=== PATIENT | female | born 1940 | race African-American/Black ===

== ENCOUNTER → 2016-11-05 | Outpatient (CLI) | payer MEDICARE, MEDICAID ==
[~2016-11-05] VITALS: Ht 167.6 cm; Wt 59.0 kg
[~2016-11-05] MED LIST: ASPI1TAB PO; ATEN100T PO; CINA30TA PO; HYDR200T3 PO; LEVO25TA5 PO; LIDOCAINE 2% INJ 100 MG/5 ML SDV (FOR ANES.) As Ordered ONE; LISI10TA4 PO; NS 1,000 ML IV SCH; PRIL20CA9 PO; PROPOFOL 200 MG/20 ML VIAL As Ordered ONE; ROCA0.25 PO; SERT50TA PO; ZOCO10TA PO
--- NOTE | 2016-11-05 12:02 | ROOR ---
Patient Name: Marina Donahue Procedure Date: 11/05/2016 11:50 AM Date of : 1940 Age: 76 Room: [facility] Gender: Female Note Status: Finalized Procedure: Upper GI endoscopy Indications: Epigastric abdominal pain, Weight loss Providers: David CANTU MD Referring MD: JUAN CARLOS ANDERSON NP Requesting Provider: Medicines: Monitored Anesthesia Care Complications: No immediate complications. Procedure: Pre-Anesthesia Assessment: - The heart rate, respiratory rate, oxygen saturations, blood pressure, adequacy of pulmonary ventilation, and response to care were monitored throughout the procedure. The Endoscope was introduced through the mouth, and advanced to the second part of duodenum. The upper GI endoscopy was accomplished without difficulty. The patient tolerated the procedure well. Findings: The examined esophagus was normal. Scattered mild inflammation characterized by erosions was found in the gastric antrum. Biopsies were taken with a cold forceps for Helicobacter pylori testing. The exam of the stomach was otherwise normal. The examined duodenum was normal. Impression: - Normal esophagus. - Mild antral gastritis, a few superficial erosions seen. Biopsied. - Normal examined duodenum. Recommendation: - Use Prilosec (omeprazole) 20 mg PO BID. - Telephone endoscopist for pathology results in 2 weeks. David Cantu MD David CANTU MD 11/05/2016 12:02:19 PM This report has been signed electronically. Number of Addenda: 0 Note Initiated On: 11/05/2016 11:50 AM Estimated Blood Loss: Estimated blood loss: none.
--- NOTE | 2016-11-05 12:28 | ROOR ---
Patient Name: Marina Donahue Procedure Date: 11/05/2016 11:51 AM Date of : 1940 Age: 76 Room: [facility] Gender: Female Note Status: Finalized Procedure: Colonoscopy Indications: Weight loss Providers: David CANTU MD Referring MD: JUAN CARLOS ANDERSON NP Requesting Provider: Medicines: Monitored Anesthesia Care Complications: No immediate complications. Procedure: Pre-Anesthesia Assessment: - The heart rate, respiratory rate, oxygen saturations, blood pressure, adequacy of pulmonary ventilation, and response to care were monitored throughout the procedure. The Colonoscope was introduced through the anus and advanced to the cecum, identified by appendiceal orifice and ileocecal valve. The colonoscopy was somewhat difficult due to a tortuous colon. The patient tolerated the procedure well. The quality of the bowel preparation was good. Findings: The perianal and digital rectal examinations were normal. (Exam: Complete, Prep: Good or Excellent.) The sigmoid colon was significantly tortuous. Advancing the scope required changing the patient's position. Multiple diverticula were found in the sigmoid colon. There was narrowing of the colon in association with the diverticular opening. The exam was otherwise without abnormality. Impression: - Spastic,angulated and tortuous sigmoid colon with scattered diverticulosis. - The examination was otherwise normal. - No specimens collected. Recommendation: - Continue present medications. David Cantu MD David CANTU MD 11/05/2016 12:27:54 PM This report has been signed electronically. Number of Addenda: 0 Note Initiated On: 11/05/2016 11:51 AM Estimated Blood Loss: Estimated blood loss: none.
[2016-11-05 12:45] VITALS: BP 143/81
== END ==
LOC: M OPP 09:37
PROVIDERS: ATTEND Internal Medicine Gastroenterology
DX: R63.4 Abnormal weight loss (principal); Q43.8 Other specified congenital malformations of intestine; R10.13 Epigastric pain; K29.70 Gastritis, unspecified, without bleeding; E03.9 Hypothyroidism, unspecified; I10 Essential (primary) hypertension; M32.9 Systemic lupus erythematosus, unspecified; E78.00 Pure hypercholesterolemia, unspecified; K21.9 Gastro-esophageal reflux disease without esophagitis; F41.9 Anxiety disorder, unspecified; F32.9 Major depressive disorder, single episode, unspecified; J30.2 Other seasonal allergic rhinitis; Z79.82 Long term (current) use of aspirin; Z79.899 Other long term (current) drug therapy

== ENCOUNTER → 2017-02-28 | Outpatient (REF) | payer MEDICARE, MEDICAID ==
[~2017-02-28] MED LIST changes: -LIDOCAINE 2% INJ 100 MG/5 ML SDV (FOR ANES.) As Ordered ONE; -NS 1,000 ML IV SCH; -PROPOFOL 200 MG/20 ML VIAL As Ordered ONE
[2017-02-28 15:24] LABS: FREE T4 1.14 NG/DL (0.76-1.46)
== END ==
LOC: M LAB REF 13:58
PROVIDERS: ATTEND Internal Medicine Nephrology
DX: E03.9 Hypothyroidism, unspecified (principal)

== ENCOUNTER → 2017-04-13 | Outpatient (CLI) | payer MEDICARE, MEDICAID ==
--- NOTE | 2017-04-16 06:44 | ECHO ---
DATE OF PROCEDURE: 04/13/2017 REFERRING PHYSICIAN: Orquidea Thornton, physicians warehouse assistant. INDICATION: Non-rheumatic aortic regurgitation, non-rheumatic mitral regurgitation. HEIGHT: 168 cm. WEIGHT: 56 kg. MEASUREMENTS: Left atrium: 3.6 cm Aortic root: 2.8 CM Ventricular septum: 1.29 cm Posterior wall: 1.31 cm Left ventricle diastole: 4.1 cm LVOT: 2.1 cm Inferior vena cava: 1.6 cm DOPPLER MEASUREMENTS: Very mild aortic valve regurgitation. No aortic stenosis. Aortic valve velocity 91.0 cm/s. Mitral A velocity: 63.9 cm/s Moderate mitral regurgitation. Mitral E velocity: 79.4 cm/s Mitral A velocity: 35.2 cm/s Mitral deceleration time: 95 ms. Mild tricuspid regurgitation. Estimated right ventricular systolic pressure 56 mmHg assuming an atrial pressure of 5 mmHg. Trace pulmonic regurgitation. MITRAL ANNULAR TISSUE DOPPLER: E-prime septal: 3.5 cm/s E-prime lateral: 7.8 cm/s DESCRIPTION: Rhythm was sinus. Image quality was good. This was a 2D, M-mode, color flow Doppler and pulsed wave Doppler examination and included mitral annular tissue Doppler. CONCLUSIONS: 1. Mild concentric left ventricular hypertrophy. Very mild global LV hypokinesis of the left ventricle. Mild reduction in overall LV systolic function. LVEF 55% by visual estimate. 2. Suggestive of possible grade 3 or grade 4 LV diastolic dysfunction (restrictive filling pattern); however caution with interpretation in the setting of moderate mitral regurgitation. 3. Focal mitral valve prolapse. No flail segments. Moderate mitral regurgitation. 4. Very mild aortic valve sclerosis of a 3-cusp aortic valve. Very mild aortic regurgitation. 5. Moderate elevation of estimated right ventricle systolic pressure (56 mmHg). 6. Tiny pericardial effusion.
== END ==
LOC: M CARPUL 08:08
PROVIDERS: ATTEND Nurse Practitioner Family
DX: I34.0 Nonrheumatic mitral (valve) insufficiency (principal); I35.1 Nonrheumatic aortic (valve) insufficiency

== ENCOUNTER 2017-07-02 09:07 | Emergency (ER) | payer MEDICARE, MEDICAID ==
[2017-07-02] MEDS ORDERED: ACETAMINOPHEN TAB 650MG DOSE (2X325MG) PO ONE (09:30)
--- NOTE | 2017-07-02 10:17 | REP ---
LEFT WRIST, FOUR VIEWS: HISTORY: Pain . There is no acute fracture or dislocation. There is narrowing of the 1st carpometacarpal joint space. IMPRESSION: There is no acute fracture or dislocation. Signed by Ottoniel Whyte MD 07/02/2017 10:30 A
--- NOTE | 2017-07-02 10:26 | REP ---
LEFT HAND, FOUR VIEWS: HISTORY: Pain. There is no acute fracture or dislocation. There is narrowing of the 1st carpometacarpal joint space. IMPRESSION: There is no acute fracture or dislocation. Signed by Ottoniel Whyte MD 07/02/2017 10:30 A
[2017-07-02] MEDS ORDERED: MEDR4PAK PO (10:55)
[2017-07-02 11:07] VITALS: BP 156/93
== END 2017-07-02 11:12 | disposition home or self-care (01) ==
LOC: M ED 09:07
DX: S66.912A Strain of unspecified muscle, fascia and tendon at wrist and hand level, left hand, initial encounter (principal); X58.XXXA Exposure to other specified factors, initial encounter; Y92.89 Other specified places as the place of occurrence of the external cause; Y93.89 Activity, other specified; Y99.8 Other external cause status; I10 Essential (primary) hypertension; Z79.899 Other long term (current) drug therapy; Z79.82 Long term (current) use of aspirin; Z87.39 Personal history of other diseases of the musculoskeletal system and connective tissue; Z87.891 Personal history of nicotine dependence; Z98.890 Other specified postprocedural states

== ENCOUNTER 2017-08-21 13:35 | Emergency (ER) | payer MEDICARE, MEDICAID ==
[2017-08-21] MEDS: diphenhydrAMINE INJ 50MG/ML VIAL (J1200) IV (13:45)
[2017-08-21] MEDS: FAMOTIDINE IV BAG 20 MG in APPROPRIATE DILUENT 1 EA IV (13:45)
[2017-08-21] MEDS: methylPREDNISolone INJ 125 MG/2 ML VIAL (J2930) IV (13:45)
== END 2017-08-21 15:16 | disposition home or self-care (01) ==
LOC: M ED 13:35
DX: T78.40XA Allergy, unspecified, initial encounter (principal); R22.0 Localized swelling, mass and lump, head; F41.9 Anxiety disorder, unspecified; F33.9 Major depressive disorder, recurrent, unspecified; Z79.82 Long term (current) use of aspirin; Z79.899 Other long term (current) drug therapy; Z91.048 Other nonmedicinal substance allergy status; Z98.890 Other specified postprocedural states
CPT/HCPCS: J1200

== ENCOUNTER → 2017-08-25 | Outpatient (REF) | payer MEDICARE, MEDICAID ==
[2017-08-25 14:12] LABS: FERRITIN 299 NG/ML (8-252); IRON (FE) 76 UG/DL (50-170); PERCENT SATURATION 26.3 % (13.2-45.0); TOTAL IRON BINDING CAPACITY 289 UG/DL (250-450)
== END ==
LOC: M LAB REF 13:22
DX: N18.3 Chronic kidney disease, stage 3 (moderate) (principal); D64.9 Anemia, unspecified
CPT/HCPCS: 83550

== ENCOUNTER → 2017-09-14 | Outpatient (CLI) | payer MEDICARE, MEDICAID | LOC: M RAD 09:18 | DX: N18.3 Chronic kidney disease, stage 3 (moderate) (principal); N28.1 Cyst of kidney, acquired | CPT/HCPCS: 76775 ==

== ENCOUNTER 2017-09-18 09:27 | Emergency (ER) | payer MEDICARE, MEDICAID ==
[2017-09-18] MEDS: ONDANSETRON 4MG/2ML VIAL (J2405) IV (10:55)
[2017-09-18] MEDS: NS 500 ML IV (10:55)
[2017-09-18 11:02] LABS: BASO % 0.2 % (0.0-1.0); EOS % 0.2 % (0.0-3.0); HEMATOCRIT 34.8 % (36.0-47.0); IMMATURE GRANULOCYTE % 0.5 % (0-0); LYMPH # 1.4 10^3/uL (1.5-4.5); LYMPH % 23.5 % (24.0-44.0); MEAN CORPUSCULAR HEMOGLOBIN 28.9 pg (27.0-33.0); MEAN CORPUSCULAR HGB CONC 31.6 g/dl (32.0-36.5); MEAN CORPUSCULAR VOLUME 91.3 fl (80.0-96.0); MONO # 0.6 10^3/uL (0.0-0.8); MONO % 10.4 % (0.0-5.0); NEUTROPHILS # 3.8 10^3/uL (1.8-7.7); NEUTROPHILS % 65.2 % (36.0-66.0); PLATELET COUNT, AUTOMATED 341 10^3/uL (150-450); RED BLOOD COUNT 3.81 10^6/uL (4.00-5.40); RED CELL DISTRIBUTION WIDTH 16.7 % (11.5-14.5); WHITE BLOOD COUNT 5.9 10^3/uL (4.0-10.0)
[2017-09-18 11:08] LABS: ALBUMIN 3.4 GM/DL (3.2-5.2); ALBUMIN/GLOBULIN RATIO 0.85 (1.00-1.93); ALKALINE PHOSPHATASE 88 U/L (45-117); ALT/SGPT 27 U/L (12-78); ANION GAP 10 MEQ/L (8-16); AST/SGOT 37 U/L (7-37); BILIRUBIN,DIRECT 0.3 MG/DL (0.0-0.2); BLOOD UREA NITROGEN 21 MG/DL (7-18); CALCIUM LEVEL 8.1 MG/DL (8.8-10.2); CARBON DIOXIDE LEVEL 27 MEQ/L (21-32); CHLORIDE LEVEL 101 MEQ/L (98-107); CREATININE FOR GFR 1.27 MG/DL (0.55-1.02); GLOMERULAR FILTRATION RATE 52.5 (>39); GLUCOSE, FASTING 125 MG/DL (70-100); POTASSIUM SERUM 3.8 MEQ/L (3.5-5.1); SODIUM LEVEL 138 MEQ/L (136-145); TOTAL PROTEIN 7.4 GM/DL (6.4-8.2)
[2017-09-18] MEDS: ATENOLOL 50 MG TAB PO (12:45)
[2017-09-18] MEDS: LOSARTAN 50 MG TAB PO (12:45)
== END 2017-09-18 14:54 | disposition home or self-care (01) ==
LOC: M ED 09:27
DX: A08.4 Viral intestinal infection, unspecified (principal); I12.9 Hypertensive chronic kidney disease with stage 1 through stage 4 chronic kidney disease, or unspecified chronic kidney disease; N18.3 Chronic kidney disease, stage 3 (moderate); K21.9 Gastro-esophageal reflux disease without esophagitis; F33.9 Major depressive disorder, recurrent, unspecified; Z79.890 Hormone replacement therapy; Z79.82 Long term (current) use of aspirin; Z79.899 Other long term (current) drug therapy; Z91.048 Other nonmedicinal substance allergy status
CPT/HCPCS: J2405

== ENCOUNTER → 2017-10-28 | Outpatient (CLI) | payer MEDICARE, MEDICAID ==
[2017-10-28 10:34] LABS: ALBUMIN 3.2 GM/DL (3.2-5.2); ALKALINE PHOSPHATASE 68 U/L (45-117); ALT/SGPT 24 U/L (12-78); ANION GAP 8 MEQ/L (8-16); AST/SGOT 39 U/L (7-37); BILIRUBIN,TOTAL 0.7 MG/DL (0.2-1.0); BLOOD UREA NITROGEN 8 MG/DL (7-18); CALCIUM LEVEL 7.9 MG/DL (8.8-10.2); CARBON DIOXIDE LEVEL 29 MEQ/L (21-32); CHLORIDE LEVEL 107 MEQ/L (98-107); CHOLESTEROL LEVEL 109 MG/DL (<200); CREATININE FOR GFR 0.86 MG/DL (0.55-1.30); GLOMERULAR FILTRATION RATE > 60.0 (>39); GLUCOSE, FASTING 114 MG/DL (70-100); HDL CHOLESTEROL 48 MG/DL (>40); LDL CHOLESTEROL 44.2 MG/DL (<100); NON-HDL-C 61 MG/DL; POTASSIUM SERUM 3.4 MEQ/L (3.5-5.1); SODIUM LEVEL 144 MEQ/L (136-145); TOTAL PROTEIN 6.4 GM/DL (6.4-8.2); TRIGLYCERIDES LEVEL 84 MG/DL (<150)
[2017-10-28 10:41] LABS: BASO % 0.5 % (0.0-1.0); EOS % 0.5 % (0.0-3.0); HEMATOCRIT 35.6 % (36.0-47.0); HEMOGLOBIN 11.2 g/dl (12.0-16.0); IMMATURE GRANULOCYTE % 0.3 % (0-3.0); LYMPH # 0.9 10^3/uL (1.5-4.5); LYMPH % 25.4 % (24.0-44.0); MEAN CORPUSCULAR HEMOGLOBIN 29.6 pg (27.0-33.0); MEAN CORPUSCULAR HGB CONC 31.5 g/dl (32.0-36.5); MEAN CORPUSCULAR VOLUME 94.2 fl (80.0-96.0); MONO # 0.4 10^3/uL (0.0-0.8); MONO % 11.7 % (0.0-5.0); NEUTROPHILS # 2.3 10^3/uL (1.8-7.7); NEUTROPHILS % 61.6 % (36.0-66.0); PLATELET COUNT, AUTOMATED 150 10^3/uL (150-450); RED BLOOD COUNT 3.78 10^6/uL (4.00-5.40); RED CELL DISTRIBUTION WIDTH 17.8 % (11.5-14.5); WHITE BLOOD COUNT 3.7 10^3/uL (4.0-10.0)
[2017-10-28 10:45] LABS: ESTIMATED AVERAGE GLUCOSE 120 MG/DL (60-110); HEMOGLOBIN A1c 5.8 %
[2017-10-28 11:39] LABS: TOTAL 25(OH) VITAMIN D 26.5 NG/ML (30.0-100.0)
== END ==
LOC: M CARPUL 08:43
DX: Z13.29 Encounter for screening for other suspected endocrine disorder (principal); R07.9 Chest pain, unspecified; R06.09 Other forms of dyspnea
CPT/HCPCS: 93306

== ENCOUNTER 2017-11-13 15:20 | Emergency (ER) | payer MEDICARE, MEDICAID ==
[2017-11-13] MEDS: ACETAMINOPH W/CODEINE #3 TAB UD PO (15:58)
== END 2017-11-13 17:16 | disposition home or self-care (01) ==
LOC: M ED 15:20
DX: S63.521A Sprain of radiocarpal joint of right wrist, initial encounter (principal); X50.0XXA Overexertion from strenuous movement or load, initial encounter; Y92.098 Other place in other non-institutional residence as the place of occurrence of the external cause; I10 Essential (primary) hypertension; E07.9 Disorder of thyroid, unspecified; J30.2 Other seasonal allergic rhinitis; Z79.899 Other long term (current) drug therapy; Z79.82 Long term (current) use of aspirin
CPT/HCPCS: 73110

== ENCOUNTER → 2017-11-16 | Outpatient (REF) | payer MEDICARE, MEDICAID ==
[2017-11-16 12:09] LABS: BASO % 0.4 % (0.0-1.0); HEMATOCRIT 39.1 % (36.0-47.0); HEMOGLOBIN 12.5 g/dl (12.0-16.0); IMMATURE GRANULOCYTE % 0.2 % (0-3.0); LYMPH # 0.9 10^3/uL (1.5-4.5); LYMPH % 18.1 % (24.0-44.0); MEAN CORPUSCULAR HEMOGLOBIN 29.9 pg (27.0-33.0); MEAN CORPUSCULAR VOLUME 93.5 fl (80.0-96.0); MONO # 0.5 10^3/uL (0.0-0.8); MONO % 8.9 % (0.0-5.0); NEUTROPHILS # 3.6 10^3/uL (1.8-7.7); NEUTROPHILS % 72.4 % (36.0-66.0); PLATELET COUNT, AUTOMATED 188 10^3/uL (150-450); RED BLOOD COUNT 4.18 10^6/uL (4.00-5.40); RED CELL DISTRIBUTION WIDTH 14.7 % (11.5-14.5)
[2017-11-16 12:47] LABS: ERYTHROCYTE SEDIMENTATION RATE 47 mm/hr (0-30)
[2017-11-16 13:04] LABS: C REACTIVE PROTEIN QUANTITATIV 3.87 MG/DL (0.00-0.30); RHEUMATOID FACTOR QUANT < 10.0 IU/ML (<15.0)
[2017-11-16 13:04] LABS: URIC ACID 4.4 MG/DL (2.6-6.0)
[2017-11-18 00:07] LABS: ANTI DOUBLE STRAND-DNA AB <1 IU/mL (0-9); ANTINUCLEAR ANTIBODIES DIRECT Positive (Negative); Lyme Disease IgG/IgM Antibodie <0.91 ISR (0.00-0.90); Lyme Disease IgM Ab Quantitati <0.80 index (0.00-0.79); RNP ANTIBODIES 6.8 AI (0.0-0.9); SJOGREN'S ANTI SS-A 0.7 AI (0.0-0.9); SJOGREN'S ANTI SS-B <0.2 AI (0.0-0.9); SMITH ANTIBODIES <0.2 AI (0.0-0.9)
== END ==
LOC: M LABDRAW1 11:05
DX: M25.531 Pain in right wrist (principal)
CPT/HCPCS: 84550

== ENCOUNTER → 2018-01-05 | Outpatient (REF) | payer MEDICARE, MEDICAID ==
[2018-01-05 13:15] LABS: RHEUMATOID FACTOR QUANT < 10.0 IU/ML (<15.0)
[2018-01-06 14:16] LABS: ANTI DOUBLE STRAND-DNA AB <1 IU/mL (0-9); ANTINUCLEAR ANTIBODIES DIRECT Positive (Negative); RNP ANTIBODIES 6.8 AI (0.0-0.9); SJOGREN'S ANTI SS-A 0.7 AI (0.0-0.9); SJOGREN'S ANTI SS-B <0.2 AI (0.0-0.9); SMITH ANTIBODIES <0.2 AI (0.0-0.9)
== END ==
LOC: M LABDRAW1 11:54
DX: M25.431 Effusion, right wrist (principal); R76.8 Other specified abnormal immunological findings in serum
CPT/HCPCS: 36415

== ENCOUNTER → 2018-08-01 | Outpatient (CLI) | payer MEDICARE, MEDICAID | LOC: M SLEEP HO 11:40 | DX: G47.30 Sleep apnea, unspecified (principal) | CPT/HCPCS: G0399 ==

== ENCOUNTER → 2018-09-18 | Outpatient (REF) | payer MEDICARE, MEDICAID ==
[~2018-09-18] MED LIST changes: +ADVI200T PO; +AMLO5TAB6 PO; +BENA25CA4 PO; +CODE30TA3 PO; +LOSA100T50; +MEDR4PAK PO; +PEPC1TAB5 PO; +PRED20TA PO; +ZOFR4TAB14 PO
[2018-09-18 19:47] LABS: BASO % 0.2 % (0.0-1.0); EOS % 0.2 % (0.0-3.0); HEMATOCRIT 35.3 % (36.0-47.0); HEMOGLOBIN 11.3 g/dl (12.0-15.5); LYMPH # 0.5 10^3/uL (1.5-4.5); LYMPH % 10.8 % (24.0-44.0); MEAN CORPUSCULAR HEMOGLOBIN 28.9 pg (27.0-33.0); MEAN CORPUSCULAR VOLUME 90.3 fl (80.0-96.0); MONO # 0.4 10^3/uL (0.0-0.8); NEUTROPHILS % 80.6 % (36.0-66.0); PLATELET COUNT, AUTOMATED 203 10^3/uL (150-450); RED BLOOD COUNT 3.91 10^6/uL (4.00-5.40)
[2018-09-18 20:04] LABS: ALBUMIN 3.8 GM/DL (3.2-5.2); ALT/SGPT 19 U/L (12-78); BILIRUBIN,TOTAL 0.5 MG/DL (0.2-1.0); BLOOD UREA NITROGEN 22 MG/DL (7-18); CALCIUM LEVEL 8.5 MG/DL (8.8-10.2); CARBON DIOXIDE LEVEL 27 MEQ/L (21-32); CHLORIDE LEVEL 104 MEQ/L (98-107); CHOLESTEROL LEVEL 149 MG/DL (<200); CHOLESTEROL RISK RATIO 2.223 (<5); CREATININE FOR GFR 1.07 MG/DL (0.55-1.30); FOLATE 14.9 NG/ML; GLOMERULAR FILTRATION RATE > 60.0 (>39); GLUCOSE, FASTING 82 MG/DL (70-100); HDL CHOLESTEROL 67 MG/DL (>40); LDL CHOLESTEROL 62 MG/DL (<100); NON-HDL-C 82 MG/DL; POTASSIUM SERUM 3.8 MEQ/L (3.5-5.1); SODIUM LEVEL 141 MEQ/L (136-145); TOTAL PROTEIN 7.6 GM/DL (6.4-8.2); TRIGLYCERIDES LEVEL 98 MG/DL (<150)
[2018-09-18 20:09] LABS: HEMOGLOBIN A1c 6.9 %
[2018-09-20 08:54] LABS: VITAMIN B12 LEVEL 248 PG/ML (232-1245)
== END ==
LOC: M LAB REF 18:54
PROVIDERS: ATTEND Nurse Practitioner Family
DX: I10 Essential (primary) hypertension (principal); E78.5 Hyperlipidemia, unspecified

== ENCOUNTER → 2018-10-17 | Outpatient (REF) | payer MEDICARE, MEDICAID ==
[~2018-10-17] MED LIST changes: +CLAR1TAB2 PO; +DILT120C31; +EQ O20TA4; +HYDR1CRE TOP; +LORA1SOL PO; +SIMV10TA2
[2018-10-17 14:06] LABS: APPEARANCE, URINE CLEAR (CLEAR); BACTERIA, URINE AUTO NEGATIVE (NEGATIVE); BILIRUBIN, URINE AUTO NEGATIVE (NEGATIVE); BLOOD, URINE BLOOD NEGATIVE (NEGATIVE); COLOR, URINE YELLOW (YELLOW); GLUCOSE, URINE (UA) AUTO NEGATIVE (NEGATIVE); KETONE, URINE AUTO NEGATIVE (NEGATIVE); LEUKOCYTE ESTERASE, URINE AUTO TRACE (NEGATIVE); NITRITE, URINE AUTO NEGATIVE (NEGATIVE); PROTEIN, URINE AUTO NEGATIVE (NEGATIVE); RBC, URINE AUTO 2 /HPF (0-3); SPECIFIC GRAVITY URINE AUTO 1.018 (1.002-1.035); SQUAMOUS EPITHELIAL CELL UR AU 1 /HPF (0-6); UROBILINOGEN, URINE AUTO 0.2 mg/dL (0.0-2.0); WBC, URINE AUTO 6 /HPF (0-3)
[2018-10-17 14:23] LABS: TOTAL PROTEIN,RANDOM URINE 23.5 MG/DL (0.0-12.0)
[2018-10-17 14:25] LABS: C REACTIVE PROTEIN QUANTITATIV 0.67 MG/DL (0.00-0.30); COMPLEMENT C3 116 MG/DL (90-180); COMPLEMENT C4 26 MG/DL (10-40); RHEUMATOID FACTOR QUANT 51.2 IU/ML (<15.0); TOTAL PROTEIN 7.6 GM/DL (6.4-8.2)
[2018-10-18 09:08] LABS: HEPATITIS B SURFACE ANTIBODY POSITIVE (POSITIVE)
[2018-10-18 09:14] LABS: HEPATITIS B SURFACE ANTIGEN NEGATIVE (NEGATIVE)
[2018-10-18 09:42] LABS: HEPATITIS C VIRUS ABY INDEX 0.1 INDEX (<0.8)
[2018-10-19 14:35] LABS: ALBUMIN 3.82 GM/DL (3.29-5.55); ALBUMIN % 50.3 % (55.8-66.1); ALPHA-1-GLOBULIN % 5.1 % (2.9-4.9); ALPHA-1-GLOBULINS 0.39 GM/DL (0.17-0.41); ALPHA-2-GLOBULINS 0.86 GM/DL (0.42-0.99); ALPHA-2-GLOBULINS % 11.3 % (7.1-11.8); BETA-1-GLOBULINS 0.44 GM/DL (0.28-0.60); BETA-1-GLOBULINS % 5.8 % (4.7-7.2); BETA-2-GLOBULINS 0.46 GM/DL (0.19-0.55); BETA-2-GLOBULINS % 6.1 % (3.2-6.5); GAMMA GLOBULIN % 21.4 % (11.1-18.8); GAMMA GLOBULINS 1.63 GM/DL (0.65-1.58)
[2018-10-23 14:10] LABS: ANTI CENTROMERE ANTIBODY <0.2 AI (0.0-0.9); ANTI DOUBLE STRAND-DNA AB 1 IU/mL (0-9); ANTI SCLERODERMA ANTIBODIES <0.2 AI (0.0-0.9); CYCLIC CITRULLINATED PEPTIDE 38 units (0-19); HEPATITIS B CORE ANTIBODY IGG Positive (Negative)
== END ==
LOC: M SFHCPLAZ 11:06
PROVIDERS: ATTEND Internal Medicine Rheumatology
DX: M32.9 Systemic lupus erythematosus, unspecified (principal); M35.1 Other overlap syndromes; R63.4 Abnormal weight loss
CPT/HCPCS: 36415; 81001; 82570; 83520; 84156; 84165; 85652; 86140; 86160; 86200; 86225; 86235; 86255; 86335; 86431; 86480; 86704; 86706; 86803; 87340; G0463

== ENCOUNTER 2018-11-02 10:44 | Emergency (ER) | payer MEDICARE, MEDICAID ==
[~2018-11-02] VITALS: Ht 167.6 cm; Wt 53.6 kg
[~2018-11-02 10:44] MED LIST changes: -CLAR1TAB2 PO; -DILT120C31; -EQ O20TA4; -HYDR1CRE TOP; -LORA1SOL PO; -SIMV10TA2
[2018-11-02 10:45] VITALS: BP 173/82
[2018-11-02] MEDS ORDERED: SIMV10TA2 (10:55)
[2018-11-02] MEDS ORDERED: DILT120C31 (10:55)
[2018-11-02] MEDS ORDERED: EQ O20TA4 (10:55)
[2018-11-02] MEDS ORDERED: LORA1SOL PO (10:55)
[2018-11-02] MEDS ORDERED: HYDR1CRE TOP (11:29)
[2018-11-02] MEDS ORDERED: CLAR1TAB2 PO (11:29)
[2018-11-02] MEDS ORDERED: LORATADINE 10 MG TAB PO ONE (11:30)
[2018-11-02] MEDS ORDERED: HYDROCORTISONE 1% CREAM 30 GM TOP ONE (11:30)
[2018-11-02] MEDS ORDERED: PRED20TA PO (11:34)
== END 2018-11-02 11:39 | disposition home or self-care (01) ==
LOC: M ED 10:44
DX: R21 Rash and other nonspecific skin eruption (principal); T88.7XXA Unspecified adverse effect of drug or medicament, initial encounter; T50.901A Poisoning by unspecified drugs, medicaments and biological substances, accidental (unintentional), initial encounter; Z79.82 Long term (current) use of aspirin; Z79.899 Other long term (current) drug therapy

== ENCOUNTER → 2018-11-06 | Outpatient (REF) | payer MEDICARE, MEDICAID ==
[~2018-11-06] MED LIST changes: +CLAR1TAB2 PO; +DILT120C31; +EQ O20TA4; +HYDR1CRE TOP; +LORA1SOL PO; +SIMV10TA2
== END ==
LOC: M SFHCPLAZ 12:18
PROVIDERS: ATTEND Internal Medicine Rheumatology
DX: R63.4 Abnormal weight loss (principal); Z53.8 Procedure and treatment not carried out for other reasons

== ENCOUNTER → 2018-12-18 | Outpatient (REF) | payer MEDICARE, MEDICAID ==
[~2018-12-18] MED LIST changes: +ACET300T47 PO; -ASPI1TAB PO; +ASPI81TA26 PO; -CINA30TA PO; +CINA30TA4 PO; -CODE30TA3 PO; -LORA1SOL PO; +LORA5SOL12 PO; +SERT-141 PO; -SERT50TA PO
[2018-12-18 20:35] LABS: HEMOGLOBIN A1c 6.6 %
== END ==
LOC: M LAB REF 16:33
PROVIDERS: ATTEND Nurse Practitioner Family
DX: Z13.9 Encounter for screening, unspecified (principal); R73.01 Impaired fasting glucose

== ENCOUNTER → 2019-01-02 | Outpatient (REF) | payer MEDICARE, MEDICAID | LOC: M LABDRAW1 16:42 | PROVIDERS: ATTEND Internal Medicine Pulmonary Disease | DX: J30.9 Allergic rhinitis, unspecified (principal) ==

== ENCOUNTER → 2019-06-18 | Outpatient (REF) | payer MEDICARE, MEDICAID ==
[2019-06-18 17:47] LABS: ALBUMIN 3.6 GM/DL (3.2-5.2); BILIRUBIN,TOTAL 0.6 MG/DL (0.2-1.0); CALCIUM LEVEL 9.2 MG/DL (8.8-10.2); CHOLESTEROL RISK RATIO 1.685 (<5); CREATININE FOR GFR 1.68 MG/DL (0.55-1.30); GLOMERULAR FILTRATION RATE 37.8 (>32); TOTAL PROTEIN 7.7 GM/DL (6.4-8.2)
[2019-06-18 17:48] LABS: BASO % 0.3 % (0.0-1.0); EOS % 0.3 % (0.0-3.0); HEMATOCRIT 37.6 % (36.0-47.0); HEMOGLOBIN 11.9 g/dl (12.0-15.5); LYMPH % 29.1 % (24.0-44.0); MEAN CORPUSCULAR HGB CONC 31.6 g/dl (32.0-36.5); MEAN CORPUSCULAR VOLUME 94.7 fl (80.0-96.0); MONO # 0.4 10^3/uL (0.0-0.8); NEUTROPHILS # 2.1 10^3/uL (1.5-8.5); PLATELET COUNT, AUTOMATED 182 10^3/uL (150-450); RED BLOOD COUNT 3.97 10^6/uL (4.00-5.40); WHITE BLOOD COUNT 3.6 10^3/uL (4.0-10.0)
[2019-06-18 19:10] LABS: HEMOGLOBIN A1c 6.2 %
== END ==
LOC: M LAB REF 16:27
PROVIDERS: ATTEND Nurse Practitioner Family
DX: I10 Essential (primary) hypertension (principal); E78.5 Hyperlipidemia, unspecified; E11.9 Type 2 diabetes mellitus without complications

== ENCOUNTER → 2019-07-09 | Day surgery (SDC) | payer MEDICARE, MEDICAID ==
[~2019-07-09] VITALS: Ht 167.6 cm; Wt 51.6 kg
[~2019-07-09] MED LIST changes: +CLAR10CA3 PO; -DILT120C31; +DILT120C31 PO; +ELIQ2.5T PO; +K-TA10TA2 PO; +LIDOCAINE 1% MDV 20ML VIAL SQ PRN; +LIDOCAINE 2% INJ 100 MG/5 ML SDV (FOR ANES.) As Ordered ONE; +LOSA25TA14 PO; +LR 1,000 ML IV SCH; +MIDAZOLAM INJ 2 MG/2 ML VIAL (J2250) As Ordered ONE; +OMEP10CASR PO; +PROPOFOL 200 MG/20 ML VIAL As Ordered ONE
[2019-07-09 07:37] VITALS: BP 137/85
--- NOTE | 2019-07-10 21:24 | ECGEPIP ---
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
== END | disposition home or self-care (01) ==
LOC: M SDC 06:00
PROVIDERS: ATTEND Internal Medicine Cardiovascular Disease
DX: I48.91 Unspecified atrial fibrillation (principal); Z53.09 Procedure and treatment not carried out because of other contraindication

== ENCOUNTER 2019-07-11 06:08 | Day surgery (SDC) | payer MEDICARE, MEDICAID ==
[~2019-07-11] VITALS: Ht 167.6 cm; Wt 51.3 kg
[~2019-07-11 06:08] MED LIST changes: -LIDOCAINE 2% INJ 100 MG/5 ML SDV (FOR ANES.) As Ordered ONE; -LR 1,000 ML IV SCH; -MIDAZOLAM INJ 2 MG/2 ML VIAL (J2250) As Ordered ONE; -PROPOFOL 200 MG/20 ML VIAL As Ordered ONE
[2019-07-11] MEDS ORDERED: LR 1,000 ML IV ONE (06:45)
[2019-07-11] MEDS ORDERED: PROPOFOL 200 MG/20 ML VIAL As Ordered ONE (06:50)
[2019-07-11] MEDS ORDERED: LIDOCAINE 2% INJ 100 MG/5 ML SDV (FOR ANES.) As Ordered ONE (06:50)
--- NOTE | 2019-07-11 07:45 | RO ---
DATE OF PROCEDURE: 07/11/2019 INDICATION: Atrial flutter. PROCEDURE: Cardioversion. BRIEF HISTORY: Mrs. Donahue is an 79-year-old female who was recently diagnosed with persistent atrial flutter. She was started on anticoagulation with Eliquis. Unfortunately, she has proven to be difficult to rate control and even on 240 mg of daily Cardizem her heart rate was typically about 110 beats per minute. Even though she was relatively asymptomatic, this was not acceptable as I was fearing onset of tachycardia induced cardiomyopathy. Consequently, we agreed that we will bring her for DC cardioversion. She was originally scheduled two days ago but when she presented to hospital, we learned that she had small amount of snack just a few hours prior and consequently the procedure was cancelled and rescheduled for today. Before the procedure, I talked to her and her daughter again about the nature of it and the indications. DESCRIPTION OF PROCEDURE: Procedure was performed in the recovery room. Sedation was provide did by anesthesiology, Shahzad Quesada CRNA. After appropriate level of sedation was accomplished, she was cardioverted. I initially delivered a 100 joules shock in synchronized fashion with defibrillator patches applied in the anterior position. Unfortunately, it failed to restore sinus mechanism and consequently second shock was delivered with 200 joules of energy again in synchronized fashion. It led to alevism of sinus rhythm. The patient tolerated the procedure well. There were no immediate complications. At the time of my dictation, the patient is still under the influence of sedation and 12-lead electrocardiogram is pending. Provided no complications occur, she will be discharged home on her chronic medications. CHARLI
[2019-07-11 08:02] VITALS: BP 167/88
[2019-07-11] MEDS ORDERED: LR 1,000 ML IV SCH (08:30)
[2019-07-11] MEDS ORDERED: ONDANSETRON 4MG/2ML VIAL (J2405) IV PRN (08:30)
--- NOTE | 2019-07-13 00:57 | ECGEPIP ---
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
--- NOTE | 2019-07-13 00:58 | ECGEPIP ---
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 NO LEFT VENTRICULAR HYPERTROPHY NOTED AND ST-T ABNORMALITIES HAVE IMPROVED Electronically Signed on 07-13-2019 0:58:37 EST by Braulio Proctor
== END 2019-07-11 08:33 | disposition home or self-care (01) ==
LOC: M SDC 06:08
PROVIDERS: ATTEND Internal Medicine Cardiovascular Disease
DX: I48.19 Other persistent atrial fibrillation (principal); I10 Essential (primary) hypertension; E78.5 Hyperlipidemia, unspecified; K21.9 Gastro-esophageal reflux disease without esophagitis; E03.9 Hypothyroidism, unspecified; M32.10 Systemic lupus erythematosus, organ or system involvement unspecified; F41.9 Anxiety disorder, unspecified; F32.9 Major depressive disorder, single episode, unspecified; Z79.899 Other long term (current) drug therapy; Z79.01 Long term (current) use of anticoagulants; Z87.891 Personal history of nicotine dependence

== ENCOUNTER 2019-08-03 15:44 | Emergency (ER) | payer MEDICARE, MEDICAID ==
[~2019-08-03 15:44] MED LIST changes: -LIDOCAINE 1% MDV 20ML VIAL SQ PRN; -SIMV10TA2; +SIMV10TA21
[2019-08-03 17:13] LABS: BASO % 0.3 % (0.0-1.0); HEMATOCRIT 34.6 % (36.0-47.0); HEMOGLOBIN 10.9 g/dl (12.0-15.5); LYMPH # 0.7 10^3/uL (1.5-5.0); LYMPH % 18.5 % (24.0-44.0); MEAN CORPUSCULAR HEMOGLOBIN 28.5 pg (27.0-33.0); MEAN CORPUSCULAR HGB CONC 31.5 g/dl (32.0-36.5); MEAN CORPUSCULAR VOLUME 90.6 fl (80.0-96.0); MONO # 0.4 10^3/uL (0.0-0.8); MONO % 11.3 % (0.0-5.0); NEUTROPHILS # 2.5 10^3/uL (1.5-8.5); NEUTROPHILS % 69.6 % (36.0-66.0); PLATELET COUNT, AUTOMATED 246 10^3/uL (150-450); RED BLOOD COUNT 3.82 10^6/uL (4.00-5.40); WHITE BLOOD COUNT 3.6 10^3/uL (4.0-10.0)
[2019-08-03 17:20] LABS: INR 1.41
[2019-08-03 17:21] LABS: PARTIAL THROMBOPLASTIN TIME 35.3 SECONDS (25.0-38.4)
[2019-08-03 17:36] LABS: ALBUMIN 3.1 GM/DL (3.2-5.2); ALT/SGPT 15 U/L (12-78); BILIRUBIN,DIRECT 0.2 MG/DL (0.0-0.2); BILIRUBIN,TOTAL 0.6 MG/DL (0.2-1.0); BLOOD UREA NITROGEN 17 MG/DL (7-18); CALCIUM LEVEL 8.7 MG/DL (8.8-10.2); CARBON DIOXIDE LEVEL 24 MEQ/L (21-32); CHLORIDE LEVEL 100 MEQ/L (98-107); CK-MB VALUE MASS < 1.0 NG/ML (<3.6); CPK CREATINE PHOSPHOKINASE 74 U/L (26-192); CREATININE FOR GFR 1.72 MG/DL (0.55-1.30); GLOMERULAR FILTRATION RATE 36.8 (>32); GLUCOSE, FASTING 115 MG/DL (70-100); MB/CK RELATIVE INDEX 1.35 (< OR =4); POTASSIUM SERUM 4.4 MEQ/L (3.5-5.1); SODIUM LEVEL 132 MEQ/L (136-145); TOTAL PROTEIN 7.9 GM/DL (6.4-8.2)
[2019-08-03 17:37] LABS: LIPASE 315 U/L (73-393); NT-PRO BNP 3535 PG/ML (<450)
[2019-08-03] MEDS ORDERED: DIGO0.123 PO (17:58)
[2019-08-03] MEDS ORDERED: DIGOXIN INJ 0.5 MG/2 ML AMP (J1160) IV ONE (18:00)
[2019-08-03 18:50] VITALS: BP 133/78
--- NOTE | 2019-08-03 19:31 | REP ---
REASON: Chest pain. COMPARISON: 11/10/2017. The technique utilized in obtaining the radiograph has magnified the cardiac silhouette and accentuated the interstitial markings. There is cardiomegaly accentuated by technique. There is evidence of basilar fibrotic change. There are no acute patchy parenchymal opacities or pleural effusions. There is no change in the osseous structures. IMPRESSION: Stable appearing chronic changes. Electronically Signed by Aftab Frausto DO 08/06/2019 01:14 P
--- NOTE | 2019-08-03 20:22 | ECGEPIP ---
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
== END 2019-08-03 19:08 | disposition home or self-care (01) ==
LOC: M ED 15:44
DX: I48.92 Unspecified atrial flutter (principal); J30.2 Other seasonal allergic rhinitis; Z79.899 Other long term (current) drug therapy; Z79.01 Long term (current) use of anticoagulants
CPT/HCPCS: 71045; 80048; 80076; 82550; 82553; 83690; 83880; 84443; 84484; 85025; 85610; 85730; 93005; 93041; 94760; 96374; 99284; G0463; J1160

== ENCOUNTER → 2019-08-31 | Outpatient (REF) | payer MEDICARE, MEDICAID ==
[~2019-08-31] MED LIST changes: +DIGO0.123 PO
[2019-08-31 16:57] LABS: BASO % 0.2 % (0.0-1.0); HEMATOCRIT 34.2 % (36.0-47.0); HEMOGLOBIN 10.5 g/dl (12.0-15.5); LYMPH # 1.1 10^3/uL (1.5-5.0); LYMPH % 26.1 % (24.0-44.0); MEAN CORPUSCULAR HEMOGLOBIN 28.3 pg (27.0-33.0); MEAN CORPUSCULAR HGB CONC 30.7 g/dl (32.0-36.5); MEAN CORPUSCULAR VOLUME 92.2 fl (80.0-96.0); MONO # 0.7 10^3/uL (0.0-0.8); MONO % 16.7 % (0.0-5.0); NEUTROPHILS # 2.4 10^3/uL (1.5-8.5); PLATELET COUNT, AUTOMATED 207 10^3/uL (150-450); RED BLOOD COUNT 3.71 10^6/uL (4.00-5.40); WHITE BLOOD COUNT 4.3 10^3/uL (4.0-10.0)
[2019-08-31 17:18] LABS: ERYTHROCYTE SEDIMENTATION RATE 63 mm/hr (0-30)
[2019-08-31 17:31] LABS: ALBUMIN 3.6 GM/DL (3.2-5.2); BILIRUBIN,TOTAL 0.5 MG/DL (0.2-1.0); C REACTIVE PROTEIN QUANTITATIV 2.28 MG/DL (0.00-0.30); CALCIUM LEVEL 9.2 MG/DL (8.8-10.2); CREATININE FOR GFR 1.33 MG/DL (0.55-1.30); GLOMERULAR FILTRATION RATE 49.5 (>32); POTASSIUM SERUM 3.8 MEQ/L (3.5-5.1); TOTAL PROTEIN 8.1 GM/DL (6.4-8.2)
[2019-09-03 14:07] LABS: RNP ANTIBODY > 8.0 AI (0.0-0.9); SMITHS ANTIBODY 0.2 AI (0.0-0.9); SSA SJOGRENS A 0.6 AI (0.0-0.9); SSB SJOGRENS B <0.2 AI (0.0-0.9)
== END ==
LOC: M SFHCRHEU 11:30
PROVIDERS: ATTEND Internal Medicine
DX: M35.9 Systemic involvement of connective tissue, unspecified (principal)
CPT/HCPCS: 36415; 80053; 85025; 85652; 86140; 86160; 86235; 86255; G0463

== ENCOUNTER → 2019-09-12 | Outpatient (CLI) | payer MEDICARE, MEDICAID ==
--- NOTE | 2019-09-12 11:09 | REP ---
CT of the chest without IV contrast for follow up of the findings on the prior chest CT of 12/01/2017. The irregular pleural-based density posteromedially in the right apex is unchanged, compatible with chronic pleuroparenchymal scarring. There is chronic stable parenchymal scarring in the medial segment of the right middle lobe, unchanged. There is chronic stable parenchymal scarring in the the lingula inferiorly, unchanged. The lower lobes are unchanged and unremarkable. There are occasional a tiny bulla, particularly in the upper lobes, unchanged. There is no mediastinal or axillary adenopathy. The study is insensitive for hilar adenopathy in the absence of IV contrast. The unenhanced thoracic aorta is unremarkable. Cardiac size is upper normal, unchanged. The visualized upper abdomen is unchanged. There are a 1.8 cm hypodensity, 1.0 cm hyperdensity and a 0.8 cm hypodensity in the upper pole of the left kidney, all unchanged, likely renal cysts. There is a 1.6 cm hypodensity in the upper pole of the right kidney, unchanged, also likely a renal cyst. Impression: No change from the prior study. There are focal zones of stable parenchymal scarring in the lung chavis bilaterally. There are scattered small bulla, particularly the upper lobes, unchanged. There are bilateral stable renal cortical cysts, unchanged. Electronically Signed by Alfredo Espinal MD 09/12/2019 11:01 A
== END ==
LOC: M RAD 09:37
PROVIDERS: ATTEND Internal Medicine
DX: R63.4 Abnormal weight loss (principal)

== ENCOUNTER → 2020-02-13 | Outpatient (CLI) | payer MEDICARE, MEDICAID ==
[~2020-02-13] MED LIST changes: +AMLO1TAB24 PO; -AMLO5TAB6 PO; +E-Z-GAS II EFFERVESCENT PACKET (SODIUM BICARB./CITRIC ACID/SIMETHICONE) As Ordered ONE; +E-Z-HD 98% w/w 340GM SUSP BTL As Ordered ONE; +E-Z-PAQUE 96% w/w SUSP 176GM BTL As Ordered ONE; +LISI10TA22 PO; -LISI10TA4 PO; -LORA5SOL12 PO; +LORA5SOL44 PO; +PRED5TA PO
--- NOTE | 2020-02-13 20:00 | REP ---
Examination Requested: Upper G.I. Series With KUB Reason For Exam: Dysphasia, esophageal strictures with weight loss Upper GI Air Contrast The procedure was performed by ELISABETH Ovalle, under the direct supervision of Dr. Ayala. The images were reviewed with Dr. Ayala. The developer advocate film shows no organomegaly or pathological masses. The intestinal gas pattern appears normal. Liquid barium and gas producing crystals were given in the erect position as well as liquid barium in the prone oblique position in order to perform a double contrast upper GI examination. The oral and pharyngeal stages of deglutition were unremarkable. Esophageal transport is efficient and there is no esophagitis, stricture, or mucosal ring noted. There is no hiatal hernia. Gastroesophageal reflux is visualized to the level of the berta. The stomach del rosario are normally outlined. The rugal folds are smooth and regular. There is no gastritis, neoplasm, ulcer disease noted. The duodenal del rosario are normally outlined. The mucosal folds are smooth and regular. There is no duodenitis, peptic ulcer disease, or neoplasm noted. The visualized portion of the proximal small bowel appears normal in course and caliber. Impression: 1. Gastroesophageal reflux to the level of the berta. 0.8 minutes of fluoroscopy time was utilized for this procedure. Some fluoroscopic images are performed with last image hold technology. These images require no additional radiation. Reviewed by ELISABETH Ames 02/13/2020 03:49 P Electronically Signed by Alfredo Ayala MD 02/13/2020 07:52 P
== END ==
LOC: M RAD 09:45
PROVIDERS: ATTEND Internal Medicine Hematology & Oncology
DX: R30.0 Dysuria (principal)

== ENCOUNTER → 2020-07-02 | Outpatient (REF) | payer MEDICARE, MEDICAID ==
[~2020-07-02] MED LIST changes: -E-Z-GAS II EFFERVESCENT PACKET (SODIUM BICARB./CITRIC ACID/SIMETHICONE) As Ordered ONE; -E-Z-HD 98% w/w 340GM SUSP BTL As Ordered ONE; -E-Z-PAQUE 96% w/w SUSP 176GM BTL As Ordered ONE; -LISI10TA22 PO; +LISI10TA4 PO; +LORA5SOL12 PO; -LORA5SOL44 PO
[2020-07-02 18:03] LABS: PERCENT SATURATION 21.5 % (13.2-45.0)
== END ==
LOC: M LAB REF 17:05
PROVIDERS: ATTEND Internal Medicine Nephrology
DX: D64.9 Anemia, unspecified (principal)

== ENCOUNTER → 2020-09-19 | Outpatient (CLI) | payer MEDICARE, MEDICAID ==
[~2020-09-19] MED LIST changes: +LISI10TA22 PO; -LISI10TA4 PO; -LORA5SOL12 PO; +LORA5SOL44 PO
[2020-09-19 13:49] LABS: APPEARANCE, URINE CLEAR (CLEAR); BACTERIA, URINE AUTO NEGATIVE (NEGATIVE); BILIRUBIN, URINE AUTO NEGATIVE (NEGATIVE); BLOOD, URINE BLOOD NEGATIVE (NEGATIVE); COLOR, URINE YELLOW (YELLOW); GLUCOSE, URINE (UA) AUTO NEGATIVE (NEGATIVE); KETONE, URINE AUTO NEGATIVE (NEGATIVE); LEUKOCYTE ESTERASE, URINE AUTO TRACE (NEGATIVE); MUCUS, URINE SMALL (NEGATIVE); NITRITE, URINE AUTO NEGATIVE (NEGATIVE); PROTEIN, URINE AUTO NEGATIVE (NEGATIVE); RBC, URINE AUTO 1 /HPF (0-3); SPECIFIC GRAVITY URINE AUTO 1.014 (1.002-1.035); SQUAMOUS EPITHELIAL CELL UR AU 2 /HPF (0-6); UROBILINOGEN, URINE AUTO 0.2 mg/dL (0.0-2.0); WBC, URINE AUTO 2 /HPF (0-3)
[2020-09-19 13:53] LABS: BASO % 0.5 % (0.0-1.0); EOS % 0.3 % (0.0-3.0); HEMATOCRIT 36.4 % (36.0-47.0); HEMOGLOBIN 11.4 g/dl (12.0-15.5); LYMPH # 1.6 10^3/uL (1.5-5.0); LYMPH % 42.4 % (24.0-44.0); MEAN CORPUSCULAR HEMOGLOBIN 30.1 pg (27.0-33.0); MEAN CORPUSCULAR HGB CONC 31.3 g/dl (32.0-36.5); MONO # 0.5 10^3/uL (0.0-0.8); NEUTROPHILS # 1.7 10^3/uL (1.5-8.5); NEUTROPHILS % 44.5 % (36.0-66.0); PLATELET COUNT, AUTOMATED 236 10^3/uL (150-450); RED BLOOD COUNT 3.79 10^6/uL (4.00-5.40); WHITE BLOOD COUNT 3.8 10^3/uL (4.0-10.0)
[2020-09-19 14:26] LABS: TOTAL PROTEIN,RANDOM URINE 43.9 MG/DL (0.0-12.0)
[2020-09-19 14:28] LABS: ALBUMIN 3.6 GM/DL (3.2-5.2); BILIRUBIN,TOTAL 0.4 MG/DL (0.2-1.0); CALCIUM LEVEL 9.5 MG/DL (8.8-10.2); CREATININE FOR GFR 1.54 MG/DL (0.55-1.30); GLOMERULAR FILTRATION RATE 41.7 (>32); POTASSIUM SERUM 3.7 MEQ/L (3.5-5.1); TOTAL PROTEIN 7.7 GM/DL (6.4-8.2)
[2020-09-19 14:44] LABS: ERYTHROCYTE SEDIMENTATION RATE 35 mm/hr (0-30)
== END ==
LOC: M PLALAB 11:33
PROVIDERS: ATTEND Internal Medicine
DX: M35.9 Systemic involvement of connective tissue, unspecified (principal)

== ENCOUNTER 2020-11-04 06:09 | Inpatient (IN) | payer MEDICARE, MEDICAID ==
[~2020-11-04] VITALS: Ht 167.6 cm; Wt 50.7 kg
[~2020-11-04 06:09] MED LIST changes: -SIMV10TA21; +SIMV10TA21 PO
[2020-11-04 06:51] LABS: BASO % 0.2 % (0.0-1.0); EOS % 0.4 % (0.0-3.0); HEMATOCRIT 38.9 % (36.0-47.0); LYMPH # 1.7 10^3/uL (1.5-5.0); LYMPH % 35.8 % (24.0-44.0); MEAN CORPUSCULAR HEMOGLOBIN 29.6 pg (27.0-33.0); MEAN CORPUSCULAR HGB CONC 30.8 g/dl (32.0-36.5); MEAN CORPUSCULAR VOLUME 95.8 fl (80.0-96.0); MONO # 0.3 10^3/uL (0.0-0.8); MONO % 7.2 % (2.0-8.0); NEUTROPHILS # 2.6 10^3/uL (1.5-8.5); NEUTROPHILS % 56.2 % (36.0-66.0); PLATELET COUNT, AUTOMATED 201 10^3/uL (150-450); RED BLOOD COUNT 4.06 10^6/uL (4.00-5.40); WHITE BLOOD COUNT 4.7 10^3/uL (4.0-10.0)
[2020-11-04 07:01] LABS: INR 1.36; PROTHROMBIN TIME 17.1 SECONDS (12.5-14.3)
[2020-11-04 07:02] LABS: PARTIAL THROMBOPLASTIN TIME 26.2 SECONDS (24.2-38.5)
[2020-11-04 07:28] LABS: ALBUMIN 3.4 GM/DL (3.2-5.2); ALT/SGPT 28 U/L (12-78); BILIRUBIN,DIRECT < 0.1 MG/DL (0.0-0.2); BILIRUBIN,TOTAL 0.5 MG/DL (0.2-1.0); BLOOD UREA NITROGEN 18 MG/DL (7-18); CALCIUM LEVEL 9.1 MG/DL (8.8-10.2); CARBON DIOXIDE LEVEL 25 MEQ/L (21-32); CHLORIDE LEVEL 105 MEQ/L (98-107); CK-MB VALUE MASS 3.9 NG/ML (<3.6); CPK CREATINE PHOSPHOKINASE 189 U/L (26-192); FREE T4 1.37 NG/DL (0.76-1.46); GLOMERULAR FILTRATION RATE 46.6 (>32); GLUCOSE, FASTING 103 MG/DL (70-100); LIPASE 301 U/L (73-393); MB/CK RELATIVE INDEX 2.06 (< OR =4); NT-PRO BNP 6245 PG/ML (<450); POTASSIUM SERUM 5.3 MEQ/L (3.5-5.1); SODIUM LEVEL 136 MEQ/L (136-145); TOTAL PROTEIN 7.9 GM/DL (6.4-8.2); TROPONIN I 0.15 NG/ML (< 0.10)
[2020-11-04] MEDS ORDERED: ASPI81TA26 PO (07:52)
[2020-11-04] MEDS ORDERED: DIGO0.123 PO (07:52)
[2020-11-04] MEDS ORDERED: OMEP1CAP73 PO (07:52)
[2020-11-04] MEDS ORDERED: DILT240C28 PO (07:52)
[2020-11-04] MEDS ORDERED: VENTAER INH (07:53)
[2020-11-04 08:07] LABS: DIGOXIN LEVEL 0.4 NG/ML (0.5-2.0)
--- NOTE | 2020-11-04 08:19 | ECGEPIP ---
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
--- NOTE | 2020-11-04 08:38 | REP ---
INDICATION: fell 7 days ago, L ant/post rib pain. COMPARISON: Portable chest dated 08/03/2019. TECHNIQUE: Four views of the left ribs and a single PA view of the chest. FINDINGS: Left ribs four views: No rib fracture or other rib abnormality is identified. PA chest: There is a face minimal left costophrenic angle suggestive of left hemothorax versus pleural effusion. There is a nodular density left costophrenic angle which could represent the scarring, atelectasis or true lung nodule. Right lung is clear. Cardiac size is upper normal. There is no pneumothorax. IMPRESSION: No rib fracture or other rib abnormality. No pneumothorax. Effacement of the left costophrenic angle as described. Nodule like density in the left costophrenic angle as described. <Electronically signed by Alfredo Espinal > 11/04/20 [id number]
--- NOTE | 2020-11-04 08:40 | REP ---
INDICATION: fell 7 days ago, L hip and pelvic pain. COMPARISON: Left hip series dated 07/17/2005. TECHNIQUE: AP view of the pelvis and two views of the left hip. FINDINGS: AP pelvis: No pelvic fractures are identified. There is a calcification inferolaterally in the pelvis on the left, unchanged. There is a 2nd similar ovoid density inferiorly in the pelvis as an interval change, possibly artifact within bowel. There is a similar appearing density superimposed over the right iliac wing possibly artifact within bowel. Left hip two views: There is no fracture or dislocation. Mineralization is normal. Joint space is unremarkable. IMPRESSION: No pelvic or left hip fracture. Pelvic calcification on the left as described. Two other densities in the pelvis as described, likely artifact within bowel. <Electronically signed by Alfredo Espinal > 11/04/20 [id number]
[2020-11-04 09:13] LABS: CK-MB VALUE MASS 4.2 NG/ML (<3.6); MB/CK RELATIVE INDEX 4.42 (< OR =4); TROPONIN I 0.17 NG/ML (< 0.10)
[2020-11-04 09:19] LABS: RSV AMPLIFICATION NEGATIVE (NEGATIVE)
[2020-11-04] MEDS ORDERED: DIGOXIN INJ 0.5 MG/2 ML AMP (J1160) IV ONE (10:30)
[2020-11-04] MEDS ORDERED: SOD POLYSTYRENE SULFONATE SUSP 15 GM/60 ML UD PO ONE (10:30)
[2020-11-04] MEDS ORDERED: ALBUTEROL 90 MCG/ACT 8GM HFA INHALER INH PRN (10:30)
--- NOTE | 2020-11-04 11:01 | REP ---
INDICATION: CHEST PAIN SOB. COMPARISON: Comparison chest x-ray 04 November 2020. TECHNIQUE: Two views.. FINDINGS: The lungs are symmetrically aerated. There are bibasilar linear opacities consistent with fibrosis. Pleural thickening and blunting of the pleural angles is noted bilaterally. This is similar to the prior study as well. Cardiomegaly is observed unchanged. Monitoring electrodes are seen. There is no evidence of pneumothorax or widened mediastinum. IMPRESSION: Small amounts of pleural fluid persist. Mild cardiomegaly. Bibasilar linear atelectasis is seen essentially unchanged.. <Electronically signed by Remberto Spaulding > 11/04/20 1181
[2020-11-04 12:00] VITALS: BP 140/85
[2020-11-04] MEDS ORDERED: CALCIUM GLUCONATE 1,000 MG in D5W MINI-BAG PLUS 100 ML IV ONE (12:00)
[2020-11-04] MEDS: APIXABAN 2.5 MG TAB (ELIQUIS) PO SCH ×2 (12:19→21:03)
[2020-11-04] MEDS: CALCITRIOL 0.25 MCG CAP (S0169) PO SCH (12:19)
[2020-11-04] MEDS: LEVOTHYROXINE 25MCG TABLET (0.025MG) PO SCH (12:19)
[2020-11-04] MEDS: predniSONE 5 MG TAB PO SCH (12:19)
[2020-11-04] MEDS: OMEPRAZOLE 20 MG CAP PO SCH (12:19)
[2020-11-04] MEDS ORDERED: SLF 3 ML SYR IV PRN (12:30)
--- NOTE | 2020-11-04 13:21 | HPE ---
HISTORY AND PHYSICAL DATE OF ADMISSION: 11/04/2020 CHIEF COMPLAINT: Chest pain. HISTORY OF PRESENT ILLNESS: This is an 80-year-old female with past medical history significant for duodenitis, emphysema, former smoker quit 30 years ago presented to the Emergency Room with acute onset of left sided chest pain right underneath the breast radiating down the flank along the side without fever or chills or cough noted this morning when she went to the bathroom and on her way back to her bedroom. She describes the pain as sharp, non-pleuritic, without pressure or tightness, accompanied with some dizziness, without palpitations, lightheadedness or near syncopal episode. She had been in her usual state of health until a week ago when she fell on the sidewalk after missing a step on her left side at that time without any prodromal symptoms. Patient denied having palpitations. She has had no prior episodes of chest pain, pressure or tightness, lightheaded. No changes in her medications, but she does complain of some post nasal drip and had been taking [id number] pills for the past 3 days and that had helped her clear her sinus congestion and she has had no fever or sinus tenderness. Aside from this she also complains of a 1 year history of weight loss, usually weighs 123 pounds currently 108 pounds. Evaluated by [facility] oncologist Dr. Shellie Steele in September of this year with CT chest, abdomen and pelvis all of which had no acute findings. Patient does have a history of hypothyroidism and follows with Dr. Maddison Martinez, but has not seen her in over 1 year. She presented to the Emergency Room for evaluation of chest pain and was found to have atrial flutter with rapid ventricular rate of 117, but says that she is compliant with her Eliquis and Cardizem 240 mg daily. Troponin was positive and cycled twice 0.15 initially and 0.17 two hours later with increase in the total CK-MB relative index to 4.42. Her EKG is unchanged with chronic left posterior fascicular block, atrial flutter with a rate of 116 with a 2:1 conduction. Per her coke still cleaner Dr. Johnson patient is to be monitored overnight for rate control and cycle cardiac markers and continued on Cardizem 60 mg by mouth q6h. Patient otherwise denies nausea, vomiting, feeling of impending doom. She denies any bright red blood per rectum, melena, black tarry stools, coffee ground emesis despite history of duodenitis. Her chest pain is unrelated to meals, unchanged by position or ambulation. She denies any PND or orthopnea. No signs of congestive heart failure. Rib x-ray shows no acute rib fractures or other rib abnormality, no pneumothorax. There is a nodular like density in the left costophrenic angle. Chest x-ray showed small amounts of pleural fluid persisting with mild cardiomegaly and bibasilar linear atelectasis that is unchanged. Hospitalist was asked to admit the patient for evaluation of atypical chest pain status post fall about a week ago with positive troponin. PAST MEDICAL HISTORY: 1. Hypertension. 2. Hyperlipidemia. 3. Hypothyroidism. 4. Hyperparathyroidism. 5. Hypercalcemia. 6. Systemic lupus erythematosus. 7. 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 8. Chronic interstitial nephritis with chronic kidney disease stage 3. 9. Sjgren's syndrome. 10. Osteopenia. 11. Anemia of chronic disease. 12. Duodenitis. 13. Chronic low back pain with lumbar radiculopathy on the left. 14. Former smoker quit 30 years ago. PAST SURGICAL HISTORY: 1. Herniated disc at [facility] 2005. 2. Bilateral cataract surgery 2008. HOME MEDICATIONS: 1. Aspirin 324 mg as needed for chest pain. 2. Diltiazem 240 mg daily. 3. Losartan 100 daily. 4. Simvastatin 1 tablet daily. 5. Albuterol as needed 2 puffs four times a day. 6. Eliquis 2.5 twice a day. 7. Calcitriol 0.25 mcg daily. 8. Digoxin 125 mcg every second day. 9. Hydroxychloroquine 200 mg daily. 10. Synthroid 25 mcg daily. 11. Omeprazole 20 mg daily. 12. Prednisone 5 mg daily. ALLERGIES: Allergic rhinitis, seasonal allergies. FAMILY HISTORY: Father , rheumatoid arthritis; mother with CVA; brother with hypertension; daughter with lupus; both grandparents are . SOCIAL HISTORY: Quit smoking 30 years ago, no alcohol or recreational drug use. Retired. Patient is a Full Code. Health Care Proxy is her daughter and brother; patient's daughter is Ismael Donahue and brother Ángel Oneal. Phone number for Ismael Donahue is [[phone]; Ángel Oneal, brother, second Health Care Proxy phone number is [[phone]. REVIEW OF SYSTEMS: Per HPI, 12 point system otherwise negative. PHYSICAL EXAMINATION: Vital signs: Temperature 98.8, pulse 113, atrial flutter with 2:1 conduction, respiratory rate 18-29, blood pressure 140/88, 100% on 2 liters nasal cannula. General: Patient is awake, alert, oriented to person, place and time, able to speak in full sentences without conversational dyspnea, appears younger than her stated age, no use of respiratory accessory muscles. HEENT: No cyanosis, pallor or icterus. Pupils are equally round and reactive to light, extraocular muscles are intact. Moist mucous membranes. Neck: No JVD, thyromegaly, stridor or cervical lymphadenopathy. No goiter noted. No carotid bruits. Lungs: Diminished, but clear to auscultation, no wheezes, rhonchi or rales. Patient has bronchial breath sounds. No adventitious breath sounds. Air entry is equal. Back: No kyphoscoliosis. Heart: S1 and S2 irregularly irregular and tachycardic. Patient has a right ventricular heave. Left lower sternal border has a systolic ejection murmur without radiation. [employer] [place] has systolic murmur without radiation 2/6. Extremities: No pitting edema on bilateral lower extremities. No cyanosis, clubbing or any pitting edema. Abdomen: Soft, nontender, nondistended, positive bowel sounds times 4 quadrants. LABORATORY DATA: White count 4.6, hemoglobin 12, hematocrit 38, platelet count 201. Sodium 136, potassium 5.3, chloride 105, bicarb 25, BUN 18, creatinine 1.4, glucose 103. First set of cardiac markers: Total CK 189, CK-MB 3.9, troponin 0.15; repeat total CK 2 hours later total CK of 95, MB fraction 4.2, relative index 4.42 and troponin I 0.17. IMAGING STUDIES: 11/04/2020 rib x-ray: No rib fracture or other rib abnormality, no pneumothorax, effacement of the left costophrenic angle which could represent scarring, atelectasis or true lung nodule. Right lung is clear. Cardiac size is upper normal. Pelvic x-ray: No pelvic or left hip fracture. Pelvic calcification on the left, 2 other densities in the pelvis is described likely artifact within the bowel. Chest x-ray 11/04/2020: Small amount of pleural fluid persists, mild cardiomegaly, bibasilar linear atelectasis is essentially unchanged. EKG: Atrial flutter, 2:1 conduction, ventricular rate of 116 with left posterior fascicular block. Echocardiogram 2018: Severe elevation of estimated right ventricular systolic pressure 74 mmHg assuming a right atrial pressure of 10 mmHg, normal right ventricular size and systolic function, moderate right atrial dilatation by visual assessment, moderate tricuspid regurgitation, mild concentric left ventricular hypertrophy, hypokinesis with mild paradoxical septal motion of the interventricular septum, normal wall motion and wall thickening of the left ventricular free wall, mild reduction of overall left ventricular systolic function, left ventricular ejection fraction 60% by visual estimate, mild left atrial dilatation, mild mitral annular calcification, moderate mitral regurgitation, very mild aortic valve sclerosis of a 3 cuspid aortic valve, very mild aortic regurgitation, difficult to access left ventricular diastolic function in the setting of sinus tachycardia and moderate mitral regurgitation; however, mitral annular tissue Doppler was reduced and therefore suggestive of restrictive diastolic filling pattern, internal dimension and wall thickness, normal left ventricular wall motion and wall thickening, normal left ventricular systolic function, left ventricular ejection fraction 60-65% by visual estimate. This echo was read by Dr. David Nevarez on 10/28/2017. ASSESSMENT: This is an 80-year-0ld female with history of systemic lupus erythematosus, mixed connective tissue disease, chronic interstitial nephritis with chronic kidney disease stage 3, hypertension, hyperlipidemia, hypothyroidism, secondary hyperparathyroidism with hyperkalemia, duodenitis, anemia of chronic disease, Sjgren's syndrome, former smoker with emphysema on CT chest quit smoking 30 years ago, chronic atrial fibrillation compliant with Eliquis, rate controlled with Cardizem, follows with Dr. Johnson as outpatient presents to the Emergency Room after a fall 1 week ago on the side walk with chest pain on the left side. Patient woke up this morning, had chest pain after going to the bathroom without any shortness of breath, evaluated in the ER and was found to have atrial flutter with rapid ventricular rate and troponin leak secondary to tachyarrhythmia. Patient has had a significant weight loss from baseline of 123 pounds to 108 pounds over the past year evaluated by medical oncologist Dr. Mark Boggs at the [facility] with negative findings on CT chest, abdomen and pelvis and normal barium esophagram showing gastroesophageal reflux disease. Patient has not seen her earth sciences professor in over 1 year. She now presents for further evaluation of chest pain with troponin leak. IMPRESSIONS/PLAN: 1. Atrial Flutter with rapid ventricular response compliant with meds and anticoagulation. presented to the er with acute onset of Chest pain: Rule out acute coronary syndrome. She will be admitted to the PCU under telemetry. Cardiac markers will be cycled q6h. Per her coke still cleaner Dr. Johnson she is to be continued on Cardizem 60 mg q6h. Repeat EKG if patient has recurrent chest pain symptoms. Telemetry monitoring. P.r.n. pain medications for musculoskeletal pain status post mechanical fall with Tylenol as needed. 2. History of SLE, mixed connective tissue disorder with chronic interstitial nephritis and CKD stage 3: Patient is continued on her home medications, outpatient follow up with her customer service rep and production scheduler, currently at baseline creatinine. Avoid nephrotoxins. Renally dose all medications. 3. Hypertension: Currently controlled. She may be resumed on her home dose of diltiazem. 4. Hypothyroidism: Recheck thyroid profile in the morning. Continue on Synthroid, adjust accordingly. 5. Hyperlipidemia: Check lipid panel in the morning. 6. Weight loss: Previously evaluated by medical oncologist Dr. Steele. Patient has not had a colonoscopy, may be beneficial to proceed with colonoscopy as outpatient and mammogram had been negative according to the patient in the past year. Refer back to an earth sciences professor regarding her hypothyroidism. 7. Hyperkalemia: Repeat metabolic panel after Kayexalate and calcium gluconate. 8. Abnromal cardiac markers most likely due to straining from atrial flutter with RVR: Cycle cardiac markers q6h, supportive care, monitor changes on EKG. 9. DVT prophylaxis: On chronic Eliquis. CODE STATUS: Patient is a Full Code. Health Care Proxy is Ismael Cidtiffanie patient's daughter as well as her brother Mr. Oneal. [facility]
[2020-11-04] MEDS: SLF 3 ML SYR IV SCH ×2 (13:34→21:04)
[2020-11-04] MEDS: HYDROXYCHLOROQUINE 200 MG TAB PO SCH (14:31)
[2020-11-04] MEDS ORDERED: AMIODARONE HCL 150 MG in IV 1 EA IV STA (14:50)
[2020-11-04] MEDS ORDERED: PERCOCET 5MG/325MG TAB PO PRN (14:55)
[2020-11-04] MEDS ORDERED: ACETAMINOPHEN TAB 650MG DOSE (2X325MG) PO PRN (14:55)
[2020-11-04 15:00] LABS: CALCIUM LEVEL 8.5 MG/DL (8.8-10.2); CK-MB VALUE MASS 3.8 NG/ML (<3.6); CREATININE FOR GFR 1.15 MG/DL (0.55-1.30); GLOMERULAR FILTRATION RATE 58.4 (>32); MAGNESIUM LEVEL 1.8 MG/DL (1.8-2.4); MB/CK RELATIVE INDEX 4.81 (< OR =4); POTASSIUM SERUM 3.1 MEQ/L (3.5-5.1); TROPONIN I 0.18 NG/ML (< 0.10)
[2020-11-04 15:37] VITALS: BP 136/79
--- NOTE | 2020-11-04 19:38 | ECGEPIP ---
[facility] - ED Test Date: 2020-11-04 Pat Name: TEDDY LOPEZ Department: Room: - Gender: Female Closer On: : 1940 Requested By: DARYA Barajas PA-C Order Number: [id number] Reading MD: Korey Lancaster Measurements Intervals Continental Rate: 116 P: [place]: QRS: -35 QRSD: 118 T: 105 QT: 342 QTc: 475 Interpretive Statements Accelerated Junctional rhythm Left axis deviation Low voltage QRS Cannot rule out Anteroseptal infarct , age undetermined Electronically Signed on 11-04-2020 19:38:19 EDT by Korey Lancaster
[2020-11-04 20:00] VITALS: BP 116/87
[2020-11-04 20:37] LABS: CK-MB VALUE MASS 3.6 NG/ML (<3.6); MB/CK RELATIVE INDEX 4.56 (< OR =4); TROPONIN I 0.18 NG/ML (< 0.10)
[2020-11-05] VITALS: BP 139/80
[2020-11-05 04:00] VITALS: BP 135/91
[2020-11-05 06:06] LABS: HEMATOCRIT 33.5 % (36.0-47.0); HEMOGLOBIN 10.5 g/dl (12.0-15.5); MEAN CORPUSCULAR HEMOGLOBIN 29.6 pg (27.0-33.0); MEAN CORPUSCULAR HGB CONC 31.3 g/dl (32.0-36.5); MEAN CORPUSCULAR VOLUME 94.4 fl (80.0-96.0); PLATELET COUNT, AUTOMATED 177 10^3/uL (150-450); RED BLOOD COUNT 3.55 10^6/uL (4.00-5.40); WHITE BLOOD COUNT 3.6 10^3/uL (4.0-10.0)
[2020-11-05] MEDS: LEVOTHYROXINE 25MCG TABLET (0.025MG) PO SCH (06:07)
[2020-11-05] MEDS: SLF 3 ML SYR IV SCH (06:07)
[2020-11-05 06:47] LABS: BLOOD UREA NITROGEN 14 MG/DL (7-18); CALCIUM LEVEL 8.2 MG/DL (8.8-10.2); CARBON DIOXIDE LEVEL 29 MEQ/L (21-32); CHLORIDE LEVEL 108 MEQ/L (98-107); CK-MB VALUE MASS 3.3 NG/ML (<3.6); CPK CREATINE PHOSPHOKINASE 68 U/L (26-192); CREATININE FOR GFR 0.99 MG/DL (0.55-1.30); DIGOXIN LEVEL 0.6 NG/ML (0.5-2.0); GLOMERULAR FILTRATION RATE > 60.0 (>32); GLUCOSE, FASTING 84 MG/DL (70-100); MAGNESIUM LEVEL 1.7 MG/DL (1.8-2.4); MB/CK RELATIVE INDEX 4.85 (< OR =4); POTASSIUM SERUM 3.3 MEQ/L (3.5-5.1); SODIUM LEVEL 143 MEQ/L (136-145); TROPONIN I 0.19 NG/ML (< 0.10)
[2020-11-05] MEDS ORDERED: DIGOXIN INJ 0.5 MG/2 ML AMP (J1160) IV STA (07:22)
[2020-11-05] MEDS ORDERED: atenoloL 50 MG TAB PO ONE (07:30)
[2020-11-05 08:06] VITALS: BP 121/81
[2020-11-05] MEDS: CALCITRIOL 0.25 MCG CAP (S0169) PO SCH (08:06)
[2020-11-05] MEDS: predniSONE 5 MG TAB PO SCH (08:07)
[2020-11-05] MEDS: APIXABAN 2.5 MG TAB (ELIQUIS) PO SCH (08:07)
[2020-11-05 08:08] VITALS: BP 121/81
[2020-11-05] MEDS: HYDROXYCHLOROQUINE 200 MG TAB PO SCH (08:08)
[2020-11-05] MEDS: OMEPRAZOLE 20 MG CAP PO SCH (08:08)
[2020-11-05] MEDS ORDERED: DIGOXIN 0.125 MG TAB PO SCH (09:00)
[2020-11-05] MEDS ORDERED: POTASSIUM CHLORIDE 10 MEQ SR TABLET PO ONE (09:20)
[2020-11-05] MEDS ORDERED: MAG SULF 1GM/100ML (MAG RUN) 1 GM in IV 1 EA IV ONE (09:20)
--- NOTE | 2020-11-05 09:24 | IPNPDOC ---
Date Seen The patient was seen on 11/05/20. Progress Note Hospitalist progress note dictated. If urgently needed, pls call hypertype to stat transcribe progress note dictated by Dr. Mack plan: AFlutter w RVR -if rate controlled with HR<100bpm, may dc home. -will need stress test to eval for CAD as outpt. immediate fu w Dr. Johnson. VS, I&O, 24H, Fishbone Vital Signs/I&O Vital Signs Date Time Temp Pulse Resp B/P (MAP) Pulse Ox O2 Delivery O2 Flow Rate FiO2 11/05/20 08:08 113 121/81 11/05/20 08:00 99.0 18 100 Room Air I&O- Last 24 Hours up to 6 AM 11/05/20 06:00 Intake Total 300 ml Balance 300 ml Laboratory Data 24H LABS Laboratory Tests 2 11/04/20 14:00: Anion Gap 6L, Glomerular Filtration Rate 58.4, Calcium Level 8.5L, Magnesium Level 1.8, Total Creatine Kinase 79, Creatine Kinase MB 3.8H, Creatine Kinase MB Relative Index 4.81H, Troponin I 0.18H 11/04/20 19:46: Total Creatine Kinase 79, Creatine Kinase MB 3.6, Creatine Kinase MB Relative Index 4.56H, Troponin I 0.18H 11/05/20 05:41: Anion Gap 6L, Glomerular Filtration Rate > 60.0, Calcium Level 8.2L, Magnesium Level 1.7L, Total Creatine Kinase 68, Creatine Kinase MB 3.3, Creatine Kinase MB Relative Index 4.85H, Troponin I 0.19H, Nucleated Red Blood Cells % (auto) 0.0, Digoxin Level 0.6 CBC/BMP Laboratory Tests 11/04/20 14:00 11/05/20 05:41 MELISSA MACK MD Nov 05, 2020 09:24
--- NOTE | 2020-11-05 10:06 | ECHO ---
DATE OF PROCEDURE: 11/04/2020 Age: 80 Gender: Female Height: 168 cm Weight: 56 kg REFERRING PHYSICIAN: Dr. Mack. INDICATION: Chest pain. MEASUREMENTS: IVS 1.3 cm LV 3.9 cm LVPW 1.5 cm LA 3.9 cm Aorta 2.8 cm RV 3.4 cm FINDINGS: This study is of good technical quality. Patient is in atrial flutter with rapid ventricular response. Left ventricle is normal size. Moderate left ventricular hypertrophy is noted. There is probably mild left ventricular systolic dysfunction with estimated EF around 45%. Right ventricle also appears dilated and hypokinetic. Both atria are severely enlarged. Aortic valve is tricuspid. It has normal morphology and no significant sclerosis. Mitral, tricuspid, and pulmonic valves appear normal. There is small to moderate size posterior localized pericardial effusion without any signs of cardiac compression. Inferior vena cava was not well seen. Same applies for aortic arch and abdominal aorta. Aortic root appears normal. Doppler interrogation reveals no aortic stenosis and mild insufficiency. There is approximately mild to moderate mitral and tricuspid insufficiency. Calculated pulmonary artery pressure is in minimum in the 40s corresponding to moderate pulmonary hypertension assuming normal CVP. Trace pulmonic insufficiency is noted. Evaluation of diastolic function is inconclusive due to underlying atrial fibrillation. CONCLUSIONS: 1. Study is of good technical quality. Patient is in atrial flutter with rapid ventricular response. 2. Normal LV size with moderate LVH, mild global hypokinesis. Estimated EF approximately 45 to 50%. 3. Hypokinetic right ventricle. 4. Severe biatrial enlargement. 5. Mild to moderate mitral and tricuspid insufficiency. 6. Moderate size posteriorly localized pericardial effusion without any signs of cardiac compression. 7. At least moderate pulmonary hypertension. 8. Unable to estimate central venous pressure. MTDD
[2020-11-05] MEDS ORDERED: SELF1KIT MC (10:24)
[2020-11-05 12:00] VITALS: BP 133/77
--- NOTE | 2020-11-05 13:31 | IPN ---
PROGRESS NOTE DATE: 11/05/2020 SUBJECTIVE: On telemetry patient remains with afib with RVR, ventricular rate of 113-117 with episodes of 78-80 occasionally. Patient had received I.V. digoxin, continued on Cardizem 60 mg q6h. Blood pressure has been well maintained with mean arterial pressure greater than 80. This morning patient denies any chest pain, pressure or tightness, no palpitations, lightheadedness, dizziness. Anxious to go home this morning. Troponin remains unchanged at 0.19 with no recurrent episodes of chest pain. OBJECTIVE: Vital signs: Temperature 99, pulse 113-78 irregularly irregular, respiratory rate 18, blood pressure 121/80, 100% on room air. General: Awake, alert, oriented to person, place and time, answering questions appropriately, able to speak in full sentences. HEENT: No pallor, icterus or jaundice. Neck: No JVD, no thyromegaly, no cervical lymphadenopathy. Lungs: Clear to auscultation, no wheezes, rhonchi or rales. Heart: S1 and S2 irregularly irregular and tachycardic. Left lower sternal border systolic ejection murmur without radiation, apical systolic murmur without radiation 2/6 and right ventricular heave. Abdomen: Soft, nontender, nondistended, positive bowel sounds. Extremities: No cyanosis, clubbing or pitting edema. LABORATORY DATA: Free-T4 1.37, TSH 4.5. Sodium 143, potassium 3.3, chloride 108, bicarb 29, BUN 14, creatinine 0.99, glucose 84, magnesium 1.7. Troponin 0.19, MB fraction 4.85, total CK 68, MB fraction 3.3. White count 3.6, hemoglobin 10, hematocrit 33, platelet count 177. IMAGING STUDIES: Chest x-ray: Small amounts of pericardial fluid, mild cardiomegaly, bibasilar linear atelectasis. ASSESSMENT: This 80-year-old female with history of Sjgren's, hypertension, hyperlipidemia, hypothyroidism, hyperparathyroidism, hypercalcemia, systemic lupus erythematosus, mixed connective tissue disease with arthritis and rash, chronic interstitial nephritis with chronic kidney disease stage 3, osteopenia, duodenitis, anemia of chronic disease, chronic low back pain with lumbar radiculopathy on the left and former smoker quit 30 years ago presented with the Emergency Room with complaints of chest pain after a mechanical fall a week ago, was found to have atrial flutter with RVR. IMPRESSIONS/PLANS: 1. Atrial flutter with RVR: Compliant with medications and anticoagulation. Presented with chest pain. Troponin was elevated thought to be demand mediated. EKG had chronic left posterior fascicular block. Previous echo in 2018 showed severe elevation of right ventricular systolic pressure to 74 mmHg with right atrial pressure 10 mm, moderate right atrial dilatation, moderate tricuspid regurgitation. Patient has been given atenolol this morning 50 mg, additional dose of digoxin, she is continued on her Cardizem 60 mg q6h per her line staker. Once patient's rate is controlled she may be discharged home on her home medications with outpatient follow up with Dr. Johnson for a stress test for evaluation of abnormal cardiac markers and for monitoring of rate control. Patient has been compliant with her anticoagulation. 2. History of SLE mixed connective tissue disorder with chronic interstitial nephritis, CKD stage 3: She has been receiving her home medications. Outpatient follow up with her business communications instructor. She is currently at baseline creatinine. 3. Hypertension: Controlled on her home dose of diltiazem. 4. Hypothyroidism: Patient's Free-T4 is normal, continue on current dose of Synthroid, recheck TSH in 2 weeks. 5. Hyperlipidemia: Continued on her chronic medications, statins. 6. Weight loss: Evaluated by medical oncologist Dr. Boggs. Has not had a colonoscopy. Normal mammogram according to the patient. TSH is elevated, but currently on Synthroid with normal Free-T4. Recheck thyroid function tests as outpatient and outpatient follow up with medical oncologist to rule out malignancy as cause for patient's weight loss. 7. Hyperkalemia: Resolved. 8. Hypokalemia: Repleted. 9. Hypomagnesemia: Repleted. 10. Abnormal cardiac markers: Will need a cardiac stress test as outpatient. Most likely straining from the atrial flutter with RVR. No acute ST-T wave changes on EKG. 11. Disposition: Discharge home today if patient is rate controlled. MTDD
[2020-11-05 15:47] VITALS: BP 130/80
--- NOTE | 2020-11-05 18:39 | DS.PDOC ---
Discharge Summary General Date of Admission Nov 04, 2020 at 10:17 Date of Discharge 11/05/20 Discharge Summary Hospitalist Discharge Summary Dictated If urgently needed, pls call hypertype to stat transcribe. Addendum: 6:35pm 11/05/20 Echo: EF 45%, moderate pericardial effusion without tamponade. discussed with Head Scorer Dr. Chavez, "not scary. Otherwise, I would have called you," Plan: -pt is to have immediate fu w glass sander within 5 days for clinical evaluation at which point repeat echo will be decided by her glass sander. -despite a fall on the sidewalk one week ago and being on eliquis, Dr. chavez does not think this is a hemorrhagic pericardial effusion, and did not want eliquis disc ontinued. -left a message at the patient's home residence [phone] to call our office at [phone] to make sure she has an appt w her glass sander and if she has any questions. Vital Signs/I&Os Vital Signs Date Time Temp Pulse Resp B/P (MAP) Pulse Ox O2 Delivery O2 Flow Rate FiO2 11/05/20 15:47 75 130/80 (97) 11/05/20 12:00 97.6 18 98 Room Air I&O- Last 24 Hours up to 6 AM 11/05/20 06:00 Intake Total 300 ml Balance 300 ml Laboratory Data Labs 24H Laboratory Tests 2 11/04/20 19:46: Total Creatine Kinase 79, Creatine Kinase MB 3.6, Creatine Kinase MB Relative Index 4.56H, Troponin I 0.18H 11/05/20 05:41: Total Creatine Kinase 68, Creatine Kinase MB 3.3, Creatine Kinase MB Relative Index 4.85H, Troponin I 0.19H, Nucleated Red Blood Cells % (auto) 0.0, Anion Gap 6L, Glomerular Filtration Rate > 60.0, Calcium Level 8.2L, Magnesium Level 1.7L, Digoxin Level 0.6 CBC/BMP Laboratory Tests 11/05/20 05:41 Discharge Medications Scheduled Apixaban (Eliquis) 2.5 Mg Tablet, 2.5 MG PO BID, (Reported) Calcitriol (Rocaltrol) 0.25 Mcg Capsule, 0.25 MCG PO DAILY, (Reported) Digoxin (Digoxin) 125 Mcg Tablet, 125 MCG PO Q2D, (Reported) Diltiazem HCl (Dilt-Xr) 240 Mg Cap.er.deg, 240 MG PO DAILY, (Reported) Hydroxychloroquine Sulfate (Hydroxychloroquine Sulfate) 200 Mg Tab, 200 MG PO DAILY, (Reported) Levothyroxine Sodium (Levothyroxine Sodium) 25 Mcg Tab, 25 MCG PO DAILY, (Reported) Losartan Potassium (Losartan Potassium) 25 Mg Tablet, 100 MG PO DAILY, (R eported) Omeprazole (Omeprazole) 20 Mg Capsule.dr, 20 MG PO DAILY, (Reported) Prednisone (Prednisone) 5 Mg Tablet, 5 MG PO DAILY, (Reported) Simvastatin (Simvastatin) Unknown Strength Tab, 1 TAB PO DAILY, (Reported) PT STATES SHE TAKES THIS MEDICATION, CALLED [facility] TO VERIFY DOSE, NO RECORD OF EVER FILLING THIS. LAST CLINIC VISIT HAS 10MG DAILY ON HER CHART Scheduled PRN Albuterol Sulfate (Ventolin Hfa) 18 Gm Hfa.aer.ad, 2 PUFF INH QID PRN for SOB/WHEEZING, (Reported) Aspirin (Aspirin EC) 81 Mg Tablet.dr, 324 MG PO for CHEST PAIN, (Reported) Allergies Coded Allergies: SEASONAL ALLERGIES (Verified Allergy, Unknown, 07/02/19) MELISSA JACOBS MD Nov 05, 2020 18:39
--- NOTE | 2020-11-05 21:12 | DSES ---
DISCHARGE SUMMARY DATE OF ADMISSION: 11/04/2020 DATE OF DISCHARGE: 11/05/2020 PRIMARY DISCHARGE DIAGNOSES: 1. Atrial flutter with rapid ventricular response. 2. Chest pain. Acute coronary syndrome has been ruled out. 3. Abnormal EKG with chronic left posterior fascicular branch. 4. History of SLE with mixed connective disorder and chronic interstitial nephritis, CKD stage 3. 5. Hypertension. 6. Hypothyroidism. 7. Hyperlipidemia. 8. Chronic weight loss with negative workup by [facility] Oncologist, Dr. Boggs. 9. Hyperkalemia. 10.Hypomagnesemia. 11.Hypokalemia. 12.Positive troponin. 13. moderate pericardial effusion without tamponade DISCHARGE MEDICATIONS: 1. Albuterol two puffs q.i.d. as needed. 2. Eliquis 2.5 b.i.d. 3. Aspirin 324 mg as needed for chest pain. 4. Calcitriol 0.25 mcg daily. 5. Digoxin 125 mcg every second day. 6. Diltiazem 240 daily. 7. Plaquenil 200 daily. 8. Levothyroxine 25 mcg daily. 9. Losartan 100 daily. 10.Omeprazole 20 daily. 11.Prednisone 5 daily. 12.Simvastatin one tablet daily. DISCHARGE INSTRUCTIONS: Per Dr. Johnson, tax analyst, pt may be discharged and may continue eliquis despite moderate pericardial effusion noted on Echo. Due to abnormal cardiac markers, patient is to follow-up with tax analyst, Dr. Johnson, within five days for a stress test as well as adjustment of her rate control medications for atrial flutter. Primary care appointment within seven days of hospital discharge. 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 In the ER, she was found to have Afib with RVR with ventricular rate of 114 to 117. Patient says that she is compliant with her Eliquis and rate control medication Cardizem. [employer] Laborer, Dr. Johnson, was relocation specialist for the Emergency Room and recommended Cardizem 60 mg every 6 hours and admission overnight. Patient was given Cardizem 60 p.o. every 6 hours, but with persistent heart rate of 114 to 117, she was given a dose of Digoxin 0.125 I.V. times two doses. Repeat Digoxin level was 0.6. She was given one dose of Atenolol 25 mg p.o. with rate control at 53 to 77. Blood pressure was maintained at 121 to 130 systolic with no subsequent complaints of chest pain. Troponins were cycled every 6 hours with persistent trop leak of 0.17, 0.18, 0.19. Normal total CK/MB index remained at 4.5 to 4.8 without exponential increase. EKG was unremarkable, without acute ST, T changes, but with chronic left axis deviation, low QRS. Echocardiogram read by Dr. Johnson done because of positive troponins, showed EF of 45 to 50%, hypokinetic right ventricle, mild to moderate mitral and tricuspid insufficiency, moderate sized localized pericardial effusion without any signs of cardiac compression, at least moderate pulmonary hypertension. DISCHARGE INSTRUCTIONS: Patient is to have repeat echocardiogram with Dr. Johnson regarding moderately sized pericardial effusion noted on a recent echo. DISCHARGE DIAGNOSES: Incidental finding of moderate sized localized pericardial effusion without signs of cardiac compression, moderate pulmonary hypertension, congestive heart failure with mild global hypokinesis, ejection fraction of 45 to 50%. PHYSICAL EXAMINATION ON DISCHARGE: VITAL SIGNS: Temperature 97.6, pulse 77, respiratory rate 18, blood pressure 130/80, 98% on room air. GENERAL: Awake, alert and oriented x3. No JVD. No thyromegaly. No cervical lymphadenopathy. LUNGS: Clear to auscultation. No wheezing, rales or rhonchi. HEART: S1, S2, irregularly irregular. ABDOMEN: Soft, nontender, non-distended. Positive bowel sounds x4 quadrants. EXTREMITIES: No pitting edema. LABORATORY DATA ON DISCHARGE: White count 3.6, hemoglobin 10, hematocrit 33, platelet count 177,000. Sodium 143, potassium 3.3, chloride 108, bicarb 29, BUN 14, creatinine 0.99, glucose 84. Magnesium 1.7. Troponin 0.19. TIME SPENT ON DISCHARGE: 30 minutes MTDD
== END 2020-11-05 16:36 | disposition home health service (06) | DRG 309 ==
LOC: M ED 06:09 → M ED INP 10:17 → ENRESERV 10:55 → M PCU 11:57
PROVIDERS: ADMIT General Practice; ATTEND General Practice
DX: I48.92 Unspecified atrial flutter (principal); N11.9 Chronic tubulo-interstitial nephritis, unspecified; N25.81 Secondary hyperparathyroidism of renal origin; I31.3 Pericardial effusion (noninflammatory); M32.15 Tubulo-interstitial nephropathy in systemic lupus erythematosus; N18.30 Chronic kidney disease, stage 3 unspecified; I12.9 Hypertensive chronic kidney disease with stage 1 through stage 4 chronic kidney disease, or unspecified chronic kidney disease; E03.9 Hypothyroidism, unspecified; E78.5 Hyperlipidemia, unspecified; R63.4 Abnormal weight loss; E87.5 Hyperkalemia; M54.16 Radiculopathy, lumbar region; I48.20 Chronic atrial fibrillation, unspecified; M85.80 Other specified disorders of bone density and structure, unspecified site; D63.8 Anemia in other chronic diseases classified elsewhere; E83.52 Hypercalcemia; I44.5 Left posterior fascicular block; M35.00 Sjogren syndrome, unspecified; J43.9 Emphysema, unspecified; Z87.891 Personal history of nicotine dependence; Z79.01 Long term (current) use of anticoagulants; Z79.82 Long term (current) use of aspirin; Z79.899 Other long term (current) drug therapy; Z79.52 Long term (current) use of systemic steroids

== ENCOUNTER → 2020-12-17 | Outpatient (REF) | payer MEDICARE, MEDICAID ==
[~2020-12-17] MED LIST changes: +DILT240C28 PO; +OMEP1CAP73 PO; +SELF1KIT MC; +VENTAER INH
[2020-12-17 12:40] LABS: CALCIUM LEVEL 9.1 MG/DL (8.8-10.2); CREATININE FOR GFR 1.3 MG/DL (0.55-1.30); GLOMERULAR FILTRATION RATE 50.7 (>32); POTASSIUM SERUM 3.5 MEQ/L (3.5-5.1)
== END ==
LOC: M SHH 11:20
PROVIDERS: ATTEND Nurse Practitioner Family
DX: I48.4 Atypical atrial flutter (principal)

== ENCOUNTER → 2021-02-24 | Outpatient (CLI) | payer MEDICARE, MEDICAID ==
[2021-02-24 13:34] LABS: BLOOD UREA NITROGEN 18 MG/DL (7-18); CARBON DIOXIDE LEVEL 29 MEQ/L (21-32); CHLORIDE LEVEL 103 MEQ/L (98-107); CREATININE FOR GFR 1.35 MG/DL (0.55-1.30); GLOMERULAR FILTRATION RATE 48.5 (>32); GLUCOSE, FASTING 140 MG/DL (70-100); POTASSIUM SERUM 3.1 MEQ/L (3.5-5.1); SODIUM LEVEL 140 MEQ/L (136-145); TOTAL PROTEIN 7.6 GM/DL (6.4-8.2)
[2021-02-25 18:07] LABS: FREE KAPPA LIGHT CHAINS SERUM 76.4 mg/L (3.3-19.4); FREE LAMBDA LIGHT CHAINS SERUM 41.7 mg/L (5.7-26.3); KAPPA/LAMBDA RATIO SERUM 1.83 (0.26-1.65)
[2021-02-26 14:02] LABS: ALBUMIN 3.77 GM/DL (3.29-5.55); ALBUMIN % 49.6 % (55.8-66.1); ALPHA-1-GLOBULIN % 4.8 % (2.9-4.9); ALPHA-1-GLOBULINS 0.36 GM/DL (0.17-0.41); ALPHA-2-GLOBULINS % 9.2 % (7.1-11.8); BETA-1-GLOBULINS 0.46 GM/DL (0.28-0.60); BETA-1-GLOBULINS % 6.1 % (4.7-7.2); BETA-2-GLOBULINS 0.46 GM/DL (0.19-0.55); BETA-2-GLOBULINS % 6.1 % (3.2-6.5); GAMMA GLOBULIN % 24.2 % (11.1-18.8); GAMMA GLOBULINS 1.84 GM/DL (0.65-1.58)
== END ==
LOC: M LAB 11:00
PROVIDERS: ATTEND Physician Assistant
DX: I50.9 Heart failure, unspecified (principal)

== ENCOUNTER → 2021-02-27 | Outpatient (REF) | payer MEDICARE, MEDICAID ==
[2021-02-27 11:10] LABS: TOTAL PROTEIN 24 HOUR URINE 147.5 MG/24HR (50-150); URINE TOTAL PROTEIN 29.5 MG/DL (0-12)
== END ==
LOC: M LAB REF 09:32
PROVIDERS: ATTEND Physician Assistant
DX: I48.4 Atypical atrial flutter (principal)

== ENCOUNTER 2021-03-21 07:29 | Inpatient (IN) | payer MEDICARE, MEDICAID ==
[~2021-03-21] VITALS: Ht 167.6 cm; Wt 49.7 kg
[2021-03-21] MEDS ORDERED: POTA1TAB14 PO (07:56)
[2021-03-21] MEDS ORDERED: D-101000 PO (07:56)
[2021-03-21] MEDS ORDERED: SIMV10TA21 PO (07:56)
[2021-03-21] MEDS ORDERED: MAGN64TASA PO (07:56)
[2021-03-21] MEDS ORDERED: FURO40TA2 (07:56)
[2021-03-21] MEDS ORDERED: NS 1,000 ML IV ONE (08:10)
[2021-03-21] MEDS: MORPHINE 4 MG/ML 1ML VIAL/SYRINGE (J2270) IV PRN ×2 (08:31→12:22)
[2021-03-21 08:33] LABS: BASO % 0.2 % (0.0-1.0); HEMATOCRIT 36.3 % (36.0-47.0); HEMOGLOBIN 11.1 g/dl (12.0-15.5); LYMPH # 0.5 10^3/uL (1.5-5.0); LYMPH % 9.6 % (24.0-44.0); MEAN CORPUSCULAR HEMOGLOBIN 28.6 pg (27.0-33.0); MEAN CORPUSCULAR HGB CONC 30.6 g/dl (32.0-36.5); MEAN CORPUSCULAR VOLUME 93.6 fl (80.0-96.0); MONO # 0.4 10^3/uL (0.0-0.8); MONO % 7.4 % (2.0-8.0); NEUTROPHILS # 4.5 10^3/uL (1.5-8.5); NEUTROPHILS % 82.4 % (36.0-66.0); PLATELET COUNT, AUTOMATED 204 10^3/uL (150-450); RED BLOOD COUNT 3.88 10^6/uL (4.00-5.40); WHITE BLOOD COUNT 5.4 10^3/uL (4.0-10.0)
[2021-03-21] MEDS ORDERED: ONDANSETRON 4MG/2ML VIAL IV ONE (09:00)
[2021-03-21 09:08] LABS: ALBUMIN 3.5 GM/DL (3.2-5.2); BILIRUBIN,DIRECT 0.7 MG/DL (0.0-0.2); BILIRUBIN,TOTAL 1.5 MG/DL (0.2-1.0); TOTAL PROTEIN 8.2 GM/DL (6.4-8.2)
[2021-03-21 09:42] LABS: CALCIUM LEVEL 9.4 MG/DL (8.8-10.2); CREATININE FOR GFR 1.64 MG/DL (0.55-1.30); GLOMERULAR FILTRATION RATE 38.8 (>32); POTASSIUM SERUM 4.1 MEQ/L (3.5-5.1)
[2021-03-21] MEDS ORDERED: ISOVUE-370 76% 100ML VIAL As Ordered ONE (09:45)
--- NOTE | 2021-03-21 10:37 | REP ---
INDICATION: LLQ pain. COMPARISON: CT abdomen and pelvis with the left IV contrast, 12/01/2017. TECHNIQUE: Following the intravenous administration of iodinated contrast, contiguous axial projection images were obtained through the abdomen and pelvis. 2D sagittal and coronal reconstructions were performed. There is poor enhancement of the abdominopelvic structures, most likely due to poor cardiac function. FINDINGS: Heart and lung bases: There has been interval development of a large pleural effusion on the right and a moderate pleural effusion on the left, with compressive atelectasis of the adjacent portions of both lungs. There is marked cardiomegaly. There is no pericardial effusion. Liver: Normal. Gallbladder: Normal. Spleen: Normal. Pancreas: Normal. Adrenal glands: Normal. Kidneys/bladder: There are multiple stable benign cortical cysts bilaterally. There has been increase in size of a cyst in the lower pole of the left kidney, measuring 2.4 cm in diameter (was 1.5 cm). The urinary bladder has a normal unenhanced appearance. Pelvic structures: The uterus is surgically absent. The ovaries are not demonstrated. There is free fluid the pelvis. There is no pelvic or inguinal lymphadenopathy. GI tract: There is a small hiatal hernia. There is mild diffuse thickening of the wall of the gastrointestinal tract, likely congestion due to poor cardiac function. There is residual contrast in the colon. There is moderate sigmoid diverticulosis without diverticulitis. There are few scattered colonic diverticuli throughout the remainder of the colon. Abdominal wall and mesentery: There is increased attenuation of the abdominal wall and mesenteric fat. There is an umbilical hernia containing normal fat measuring 15 mm in diameter. Abdominal aorta and vascular structures: There is calcific vascular disease of the abdominal aorta. The IVC is dilated measuring 3.0 cm in diameter. Bony structures: There is degenerative disc disease, L5-S1. The SI joints and hips are unremarkable. IMPRESSION: 1. Marked cardiomegaly; bilateral pleural effusions and free fluid in the pelvis; increased attenuation of the subcutaneous and mesenteric fat; dilatation of the IVC: Findings consistent with congestive heart failure. 2. Calcific vascular disease of the thoracoabdominal aorta and coronary arteries. 3. Colonic diverticulosis without diverticulitis. 4. Small hiatal hernia. <Electronically signed by Luis Juárez > 03/21/21 [id number]
[2021-03-21] MEDS ORDERED: FURO40TA2 PO (11:53)
[2021-03-21] MEDS ORDERED: LOSA100T50 PO (11:53)
[2021-03-21] MEDS ORDERED: HOME MED LIST COMPLETE! XX SCH (11:55)
[2021-03-21] MEDS ORDERED: FUROSEMIDE 100MG/10ML VIAL (J1940) IV ONE (12:45)
--- NOTE | 2021-03-21 12:59 | REP ---
INDICATION: sob. COMPARISON: Two-view chest, 11/04/2020 TECHNIQUE: AP portable chest was performed. FINDINGS: There is cardiomegaly, pulmonary venous hypertension and pulmonary interstitial edema consistent with congestive heart failure. There is airspace disease in both lung bases consistent with atelectasis or pneumonia. There are small bilateral pleural effusions. There is calcific vascular disease of the thoracic aorta. The upper abdominal bowel gas pattern is normal. There are no significant bony abnormalities. IMPRESSION: Congestive heart failure with bilateral basilar atelectasis and bilateral pleural effusions. <Electronically signed by Luis Juárez > 03/21/21 0152
[2021-03-21 13:33] LABS: RSV AMPLIFICATION NEGATIVE (NEGATIVE)
[2021-03-21] MEDS ORDERED: ALBUTEROL 90 MCG/ACT 8GM HFA INHALER INH PRN (13:55)
--- NOTE | 2021-03-21 14:27 | HPEPDOC ---
General Date of Admission 03/21/21 Date of Service: Mar 21, 2021 Chief Complaint The patient is a 80-year-old female admitted with a reason for visit of Gen Med Complaint. Source: Patient Exam Limitations: No limitations History of Present Illness Patient is 80 years old female with past medical history of for duodenitis, emphysema, atrial flutter, mixed connective tissue disorder, former smoker quit 30 years ago presented to the hospital with weakness, shortness of breath and abdominal pain. Patient stated that around 2- 3 days ago she developed abdominal pain, intermittent in the lower quadrants. Also patient reported increased shortness of breath with weakness. Patient denied diarrhea, fever or chills. In ER patient was found to have no leukocytosis, hemoglobin 11.1, lactic acid 3.5, creatinine 1.6, BNP 73484. CT chest showed Congestive heart failure with bilateral basilar atelectasis and bilateral pleural effusions. CT abdomen and pelvis showed Marked cardiomegaly; bilateral pleural effusions and free fluid in the pelvis; increased attenuation of the subcutaneous and mesenteric fat; dilatation of the IVC: Findings consistent with congestive heart failure. Diverticulosis without diverticulitis. When I saw patient in ER he abdominal pain completely resolved Home Medications Scheduled Apixaban (Eliquis) 2.5 Mg Tablet, 2.5 MG PO BID, (Reported) Calcitriol (Rocaltrol) 0.25 Mcg Capsule, 0.25 MCG PO DAILY, (Reported) Cholecalciferol (Vitamin D3) (Vitamin D3) 25 Mcg Capsule, 25 MCG PO DAILY, (Reported) Digoxin (Digoxin) 125 Mcg Tablet, 125 MCG PO Q2D, (Reported) Diltiazem HCl (Dilt-Xr) 240 Mg Cap.er.deg, 240 MG PO DAILY, (Reported) Furosemide (Furosemide) 40 Mg Tablet, 40 MG PO DAILY, (Reported) Hydroxychloroquine Sulfate (Hydroxychloroquine Sulfate) 200 Mg Tab, 200 MG PO DAILY, (Reported) Levothyroxine Sodium (Levothyroxine Sodium) 25 Mcg Tab, 25 MCG PO DAILY, (Reported) Losartan Potassium (Losartan Potassium) 100 Mg Tablet, 100 MG PO DAILY, (Reported) Magnesium Chloride (Mag64) 64 Mg Tablet.dr, 64 MG PO Q2D, (Reported) Omeprazole (Omeprazole) 20 Mg Capsule.dr, 20 MG PO DAILY, (Reported) Potassium Chloride (Potassium Chloride) 20 Meq Tablet.er, 20 MEQ PO BID, (Reported) Prednisone (Prednisone) 5 Mg Tablet, 5 MG PO DAILY, (Reported) Simvastatin (Simvastatin) 10 Mg Tablet, 10 MG PO DAILY, (Reported) Scheduled PRN Albuterol Sulfate (Ventolin Hfa) 18 Gm Hfa.aer.ad, 2 PUFF INH QID PRN for SOB/WHEEZING, (Reported) Allergies Coded Allergies: SEASONAL ALLERGIES (Verified Allergy, Unknown, 07/02/19) Past Medical History Medical History 1. Hypertension. 2. Hyperlipidemia. 3. Hypothyroidism. 4. Hyperparathyroidism. 5. Hypercalcemia. 6. Systemic lupus erythematosus. 7. 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 8. Chronic interstitial nephritis with chronic kidney disease stage 3. 9. Sjgren's syndrome. 10. Osteopenia. 11. Anemia of chronic disease. 12. Duodenitis. 13. Chronic low back pain with lumbar radiculopathy on the left. 14. Former smoker quit 30 years ago. Surgical History 1. Herniated disc at [facility] 2005. 2. Bilateral cataract surgery 2008. Family History Father , rheumatoid arthritis; mother with CVA; brother with hypertension; daughter with lupus; both grandparents are . Social History * Smoker: former Smoker Alcohol: Denies Drugs: denies A-FIB/CHADSVASC A-FIB History Current/History of A-Fib/PAF?: Yes Current PO Anticoag Therapy: Yes Review of Systems Constitutional: Denies: Chills, Fever Eyes: Denies: Pain ENT: Denies: Head Aches Skin: Denies: Rash, Lesions Pulmonary: Reports: Dyspnea Cardiovascular: Denies: Chest Pain, Palpitations Gastrointestinal: Reports: Nausea; Denies: Vomiting Genitourinary: Denies: Dysuria, Frequency Hematologic: Denies: Bruising Endocrine: Denies: Polydipsia Musculoskeletal: Denies: Neck Pain Neurological: Denies: Weakness Psych: Reports: Mood Normal Physical Examination General Exam: Positive: Alert, Cooperative Eye Exam: Positive: PERRLA ENT Exam: Positive: Atraumatic Neck Exam: Positive: Supple, JVD Chest Exam: Positive: Diminished Heart Exam: Positive: Irregular Rhythm Telemetry: Positive: Atrial fibrillation Abdomen Exam: Positive: Normal bowel sounds; Negative: Tenderness Extremity Exam: Negative: Clubbing Skin Exam: Positive: Nl turgor and temperature Neuro Exam: Positive: Strength at 5/5 X4 ext, Cranial Nerves 3-12 NL Psych Exam: Positive: Mental status NL Vital Signs Vital Signs Date Time Temp Pulse Resp B/P (MAP) Pulse Ox O2 Delivery O2 Flow Rate FiO2 03/21/21 12:22 18 03/21/21 12:15 169/110 (129) 03/21/21 12:14 98 03/21/21 09:44 87 03/21/21 07:32 97.6 Laboratory Data Labs 24H Laboratory Tests 2 03/21/21 08:21: Immature Granulocyte % (Auto) 0.4, Neutrophils (%) (Auto) 82.4H, Lymphocytes (%) (Auto) 9.6L, Monocytes (%) (Auto) 7.4, Eosinophils (%) (Auto) 0.0, Basophils (%) (Auto) 0.2, Neutrophils # (Auto) 4.5, Lymphocytes # (Auto) 0.5L, Monocytes # (Auto) 0.4, Eosinophils # (Auto) 0.0, Basophils # (Auto) 0.0, Nucleated Red Blood Cells % (auto) 0.0, Anion Gap 14, Glomerular Filtration Rate 38.8, Calcium Level 9.4, Total Bilirubin 1.5H, Direct Bilirubin 0.7H, Aspartate Amino Transf (AST/SGOT) 48H, Alanine Aminotransferase (ALT/SGPT) 21, Alkaline Phosphatase 77, UU-Upd-B-Type Natriuretic Peptide 32926M, Total Protein 8.2, Albumin 3.5, Albumin/Globulin Ratio 0.7L, Lipase 105 03/21/21 12:22: Lactic Acid Level 3.5*H, Digoxin Level 1.2 03/21/21 12:23: POC Troponin I (Misc) 0.51H 03/21/21 12:36: Coronavirus (COVID-19)(PCR) NEGATIVE, Influenza Type A (RT-PCR) NEGATIVE, Influenza Type B (RT-PCR) NEGATIVE, Respiratory Syncytial Virus (PCR) NEGATIVE CBC/BMP Laboratory Tests 03/21/21 08:21 Assessment/Plan Patient is 80 years old female with past medical history of for duodenitis, emphysema, atrial flutter, mixed connective tissue disorder, former smoker quit 30 years ago presented to the hospital with weakness, shortness of breath and abdominal pain. Patient stated that around 2- 3 days ago she developed abdominal pain, intermittent in the lower quadrants. Also patient reported increased shortness of breath with weakness. Patient denied diarrhea, fever or chills. In ER patient was found to have no leukocytosis, hemoglobin 11.1, lactic acid 3.5, creatinine 1.6, BNP 68148. CT chest showed Congestive heart failure with bilateral basilar atelectasis and bilateral pleural effusions. CT abdomen and pelvis showed Marked cardiomegaly; bilateral pleural effusions and free fluid in the pelvis; increased attenuation of the subcutaneous and mesenteric fat; dilatation of the IVC: Findings consistent with congestive heart failure. Diverticulosis without diverticulitis. When I saw patient in ER he abdominal pain completely resolved Problems (1) CHF exacerbation Status: Acute Problem Text: Diastolic CHF exacerbation I's and O's Echo Lasix IV cardiac diet (2) Atrial flutter Status: Chronic Problem Text: Heart rate under control Digoxin level within normal limit Continue Eliquis (3) Elevated troponin level Status: Acute Problem Text: Most likely demand ischemia due to secondary to CHF exacerbation Patient denies any chest pain EKG negative for acute ischemic changes Continue to monitor troponin level (4) Hypertension Status: Chronic Problem Text: Blood pressure under control Continue home meds Losartan on hold due to ISAIAH (5) History of systemic lupus erythematosus Problem Text: Plaquenil on hold due to ISAIAH Continue prednisone (6) Hyperlipidemia Status: Chronic Problem Text: Continue statin (7) Cachexia Status: Chronic Problem Text: Ensure BMI 17.6, muscle wasting Full floor covering printer assessment (8) Hypothyroidism Status: Chronic Problem Text: Continues levothyroxine (9) ISAIAH (acute kidney injury) Status: Acute Problem Text: Most likely secondary to intravascular depletion secondary to CHF exacerbation Continue to monitor Losartan and Plaquenil on hold Plan / VTE VTE Prophylaxis Ordered?: Yes ARIEL TOLENTINO DO Mar 21, 2021 14:27
--- NOTE | 2021-03-21 14:32 | ECGEPIP ---
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
[2021-03-21 15:45] VITALS: BP 143/93
[2021-03-21] MEDS: predniSONE 5 MG TAB PO SCH (16:03)
[2021-03-21] MEDS: DIGOXIN 0.125 MG TAB PO SCH (16:03)
[2021-03-21] MEDS: CALCITRIOL 0.25 MCG CAP (S0169) PO SCH (16:03)
[2021-03-21] MEDS: OMEPRAZOLE 20 MG CAP PO SCH (16:04)
[2021-03-21] MEDS: APIXABAN 2.5 MG TAB (ELIQUIS) PO SCH (21:48)
[2021-03-21] MEDS: POTASSIUM CHLORIDE 10 MEQ SR TABLET PO SCH (21:48)
[2021-03-21] MEDS: SIMVASTATIN 10 MG TAB PO SCH (21:48)
[2021-03-21 22:00] VITALS: BP 145/81
[2021-03-21] MEDS: FUROSEMIDE 40MG/4ML VIAL (J1940) IV SCH (23:49)
--- NOTE | 2021-03-22 00:14 | ECGEPIP ---
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
[2021-03-22 05:36] VITALS: BP 163/96
[2021-03-22] MEDS: LEVOTHYROXINE 25MCG TABLET (0.025MG) PO SCH (06:20)
[2021-03-22 06:24] LABS: HEMATOCRIT 37.3 % (36.0-47.0); HEMOGLOBIN 11.4 g/dl (12.0-15.5); MEAN CORPUSCULAR HEMOGLOBIN 28.3 pg (27.0-33.0); MEAN CORPUSCULAR HGB CONC 30.6 g/dl (32.0-36.5); MEAN CORPUSCULAR VOLUME 92.6 fl (80.0-96.0); PLATELET COUNT, AUTOMATED 187 10^3/uL (150-450); RED BLOOD COUNT 4.03 10^6/uL (4.00-5.40); WHITE BLOOD COUNT 4.5 10^3/uL (4.0-10.0)
[2021-03-22 06:47] LABS: ALBUMIN 3.2 GM/DL (3.2-5.2); BILIRUBIN,TOTAL 0.9 MG/DL (0.2-1.0); CALCIUM LEVEL 8.2 MG/DL (8.8-10.2); CREATININE FOR GFR 1.71 MG/DL (0.55-1.30); MAGNESIUM LEVEL 2.1 MG/DL (1.8-2.4); POTASSIUM SERUM 4.1 MEQ/L (3.5-5.1); TOTAL PROTEIN 7.2 GM/DL (6.4-8.2)
[2021-03-22] MEDS: OMEPRAZOLE 20 MG CAP PO SCH (08:43)
[2021-03-22] MEDS: predniSONE 5 MG TAB PO SCH (08:44)
[2021-03-22] MEDS: CALCITRIOL 0.25 MCG CAP (S0169) PO SCH (08:44)
[2021-03-22] MEDS: APIXABAN 2.5 MG TAB (ELIQUIS) PO SCH ×2 (08:45→21:07)
[2021-03-22] MEDS: FUROSEMIDE 40MG/4ML VIAL (J1940) IV SCH (08:45)
[2021-03-22] MEDS: POTASSIUM CHLORIDE 10 MEQ SR TABLET PO SCH ×2 (08:45→21:07)
[2021-03-22] MEDS: guaiFENesin ER 600 MG TAB PO SCH ×2 (13:51→21:08)
[2021-03-22] MEDS: ACETAMINOPHEN TAB 650MG DOSE (2X325MG) PO PRN (13:51)
[2021-03-22] MEDS: CEPACOL LOZENGE PO PRN ×2 (13:51→16:09)
[2021-03-22 14:00] VITALS: BP 122/58
--- NOTE | 2021-03-22 14:52 | IPNPDOC ---
Text Note Date of Service The patient was seen on 03/22/21. NOTE Hospitalist Progress Note Subjective: Patient is sitting upright on blood well in the room. She reports that she is feeling significantly better this morning. She reports that she had quite a bit of urine output throughout the night, she states that she had been going almost every 15 minutes it felt like. She is able to use the restroom without assistance, therefore I's & O's have not been accurately recorded in the computer. On physical examination today she does appear to be essentially euvolemic, with only trace bilateral lower extremity edema, and lung sounds have very minimal crackles on the left base, but otherwise she is looking better than what was described yesterday, she reports that she is feeling better at this time. Apparently she had bradycardia all night on telemetry (pulse of 45-50), but the recorded vital signs indicate a pulse of 90, therefore I suspect that the Dinamap pulse is not accurate, but is likely precisely double her current actual heart rate on the monitor. Cardiology has already been contacted and consulted last night for evaluation regarding elevated troponins, and their evaluation today I hope that they will also evaluate her bradycardia as she may need a pacemaker. Per the patient apparently her rubber molder in [place] has mentioned a pacemaker in the past. Objective: General: Awake, alert, oriented 3. Not in any acute distress. HEENT: Head normocephalic, atraumatic, sclera are nonicteric. Hearing is grossly intact to conversation. Respiratory: Clear to auscultation bilaterally with no wheezes, rales, or rhon chi. Cardiovascular: Regular rate and rhythm, with no rubs, gallops, or murmur. Abdomen: Soft, nontender, nondistended, no hepatosplenomegaly appreciated. Bowel sounds present. Extremities: 2+ pulses in the radial and dorsalis pedis bilaterally. No evidence of clubbing or cyanosis. Assessment: Acute decompensation of diastolic congestive heart failure History of atrial flutter Acute bradycardia Elevated troponin (no acute changes on EKG) Hypertension -Echocardiogram still pending -Patient has diuresed quite well with IV Lasix, she is fairly close to being euvolemic on clinical examination today. I will discontinue IV Lasix at this time and give her another dose of 40 mg Lasix PO this evening, and then we will start her back on her usual home dose of 40 mg daily tomorrow morning. -Given her profound bradycardia, I will discontinue Cardizem at this time, but will continue with the digoxin 0.125 mg PO every other day. -Clinically she appears to be doing well, blood pressure is well maintained. -Cardiology has already been consulted. -I suspect that she may need a pacemaker. Given the combination of bradycardia, CHF, cardiorenal syndrome Acute kidney injury -Likely secondary to cardiorenal syndrome -Hold nephrotoxic agents (losartan) Patient is complaining of acid reflux and cough GERD -Start famotidine History of systemic lupus erythematosus -Hold Plaquenil until GFR returns to normal Cachexia, muscle wasting, BMI 17.6 -Full cradle slide maker assessment pending -Recommend Ensure with all meals Hyperlipidemia -Continue statin Hypothyroidism -Continue levothyroxine VS,Fishbone, I+O VS, Fishbone, I+O Laboratory Tests 03/22/21 05:58 Vital Signs Date Time Temp Pulse Resp B/P (MAP) Pulse Ox O2 Delivery O2 Flow Rate FiO2 03/22/21 08:46 62 140/98 03/22/21 05:36 97.5 18 93 03/21/21 22:00 Room Air I&O- Last 24 Hours up to 6 AM 03/22/21 06:00 Intake Total 850 ml Output Total 700 ml Balance 150 ml JUVE FABIAN DO Mar 22, 2021 14:52
[2021-03-22] MEDS: FAMOTIDINE 20 MG TAB PO SCH ×2 (16:09→21:08)
[2021-03-22] MEDS ORDERED: FUROSEMIDE 40 MG TAB PO ONE (17:00)
[2021-03-22] MEDS ORDERED: ONDANSETRON 4MG/2ML VIAL IV PRN (18:25)
[2021-03-22] MEDS: SIMVASTATIN 10 MG TAB PO SCH (21:08)
[2021-03-22] MEDS: ENTRESTO 24-26MG TABLET (SACUBITRIL/VALSARTAN) PO SCH (21:10)
[2021-03-22 22:00] VITALS: BP 128/69
[2021-03-23] MEDS: LEVOTHYROXINE 25MCG TABLET (0.025MG) PO SCH (05:24)
[2021-03-23 06:00] VITALS: BP 129/70
[2021-03-23 06:48] LABS: TROPONIN I 0.6 NG/ML (< 0.10)
[2021-03-23 08:25] LABS: CALCIUM LEVEL 8.3 MG/DL (8.8-10.2); CREATININE FOR GFR 1.89 MG/DL (0.55-1.30); GLOMERULAR FILTRATION RATE 32.9 (>32); POTASSIUM SERUM 3.9 MEQ/L (3.5-5.1)
[2021-03-23 08:33] LABS: HEMATOCRIT 34.3 % (36.0-47.0); HEMOGLOBIN 10.5 g/dl (12.0-15.5); MEAN CORPUSCULAR HEMOGLOBIN 28.7 pg (27.0-33.0); MEAN CORPUSCULAR HGB CONC 30.6 g/dl (32.0-36.5); MEAN CORPUSCULAR VOLUME 93.7 fl (80.0-96.0); PLATELET COUNT, AUTOMATED 192 10^3/uL (150-450); RED BLOOD COUNT 3.66 10^6/uL (4.00-5.40); WHITE BLOOD COUNT 4.3 10^3/uL (4.0-10.0)
[2021-03-23] MEDS ORDERED: FUROSEMIDE 40 MG TAB PO SCH (09:00)
[2021-03-23] MEDS: ENTRESTO 24-26MG TABLET (SACUBITRIL/VALSARTAN) PO SCH ×2 (09:04→20:46)
[2021-03-23] MEDS: FAMOTIDINE 20 MG TAB PO SCH ×2 (09:04→20:44)
[2021-03-23] MEDS: APIXABAN 2.5 MG TAB (ELIQUIS) PO SCH ×2 (09:04→20:43)
[2021-03-23] MEDS: CALCITRIOL 0.25 MCG CAP (S0169) PO SCH (09:04)
[2021-03-23] MEDS: predniSONE 5 MG TAB PO SCH (09:04)
[2021-03-23] MEDS: guaiFENesin ER 600 MG TAB PO SCH ×2 (09:04→20:45)
[2021-03-23] MEDS: OMEPRAZOLE 20 MG CAP PO SCH (09:04)
[2021-03-23] MEDS: DIGOXIN 0.125 MG TAB PO SCH (09:05)
[2021-03-23] MEDS: POTASSIUM CHLORIDE 10 MEQ SR TABLET PO SCH ×2 (09:05→20:45)
[2021-03-23] MEDS: ACETAMINOPHEN TAB 650MG DOSE (2X325MG) PO PRN (09:09)
--- NOTE | 2021-03-23 12:43 | ECHO ---
ECHOCARDIOGRAM DATE OF PROCEDURE: 03/21/2021 Age: 80 Gender: Female Height: Weight: REFERRING PHYSICIAN: Zhou Woods M.D. PATIENT LOCATION: Room 4214. REASON FOR THE TESTING: Heart failure, abnormal troponin. MEASUREMENTS: 2D Measurements: IVS 1.5 cm LVPW 1.5 cm LV 3.8 cm Aorta 3.3 cm LA 3.7 cm Doppler Measurements: Peak velocity across the aortic valve 0.9 m/sec Peak velocity across the LVOT 0.8 m/sec Mitral E 0.79 Mitral A 0.42 with a ratio of 1.9 Maximum tricuspid valve velocity 3.3 m/sec 2D COMMENTS: 1. Normal left ventricular size with moderate increase in left ventricular wall thickness, but a depressed global left ventricular systolic function. There was global hypokinesis. The estimated left ventricular systolic ejection fraction is 35-40%. 2. Subsequently, the left atrium and the right atrium appear to be enlarged. Normal right ventricle. 3. The atrial septum appeared to be normal without evidence of defect or shunt. 4. Normal aortic root. 5. Small to moderate pericardial effusion noted in limited views. Left pleural effusion also noted. 6. Mildly calcified aortic valve with normal leaflet excursion. Mildly calcified mitral annulus with normal anterior mitral valve leaflet motion. Normal tricuspid valve and pulmonic valve. The proximal pulmonary artery branches were not well visualized. 7. The inferior vena cava was dilated. Central venous pressure is most likely elevated. DOPPLER: It detects mild aortic regurgitation, moderate mitral regurgitation, moderate tricuspid regurgitation and trace pulmonic regurgitation. The calculated pulmonary artery systolic pressure varies between 40-50 mmHg. Assessment of the left ventricular diastolic functio appeared to be normal. IMPRESSION: 1. Moderate global left ventricular systolic dysfunction with global hypokinesis. There was moderate concentric left ventricular hypertrophy. 2. Aortic valve sclerosis with mild aortic regurgitation. 3. Moderate mitral regurgitation with a mildly enlarged left atrium. 4. Moderate tricuspid regurgitation with moderate pulmonary hypertension and dilated right atrium. 5. There were some findings of elevated central venous pressure. The inferior vena cava was mildly enlarged. 6. Pleural and pericardial effusions were noted. No evidence of cardiac tamponade. ____ pericardial effusion was noted in limited views and this will be reassessed prior to her discharge.
[2021-03-23 14:00] VITALS: BP 118/59
--- NOTE | 2021-03-23 19:35 | IPNPDOC ---
Text Note Date of Service The patient was seen on 03/23/21. NOTE Hospitalist Progress Note Subjective: Patient was reclined in the bed when I entered the room. She was easily aroused. She reports that she feels as though her throat is sticking down and she is having difficulty swallowing. She believes it is due to either reflux or postnasal drip, however it has not resolved with the initiation of famotidine. This seems to be an ongoing issue, therefore I will request that speech therapy come and evaluate her. Otherwise, it seems that her bradycardia has now resolved, her dose of Cardizem was lowered yesterday. She is now in atrial fibrillation with an average heart rate of 65-80. Troponins are trending down slowly. Cardiology did order Entresto, however their note does not appear to be dictated yet. Objective: General: Awake, alert, oriented 3. Not in any acute distress. HEENT: Head normocephalic, atraumatic, sclera are nonicteric. Hearing is grossly intact to conversation. Respiratory: Clear to auscultation bilaterally with no wheezes, rales, or rhonchi. Cardiovascular: Regular rate and rhythm, with no rubs, gallops, or murmur. Abdomen: Soft, nontender, nondistended, no hepatosplenomegaly appreciated. Bowel sounds present. Extremities: 2+ pulses in the radial and dorsalis pedis bilaterally. No evidence of clubbing or cyanosis. Assessment: Acute decompensation of diastolic congestive heart failure History of atrial flutter Acute bradycardia Elevated troponin (no acute changes on EKG) Hypertension -Echocardiogram still pending -Continue home dose of 40 mg daily Lasix, clinically pt appears to be euvolemic. -Bradycardia improved now, but now she is in atrial fibrillation (rate controlled) -continue with the digoxin 0.125 mg PO every other day, and cardizem 125 daily. -Cardiology has added Entresto -I suspect that she may need a pacemaker. Given the combination of bradycardia, CHF, cardiorenal syndrome -Cardiology has already been consulted, note apparently has not been dictated yet. Acute kidney injury -Likely secondary to cardiorenal syndrome - GFR same today as yesterday Patient is complaining of acid reflux and cough GERD Difficulty swallowing -Speech therapy evaluation has been requested. We will put her on a pured diet. History of systemic lupus erythematosus -Hold Plaquenil until GFR returns to normal Cachexia, muscle wasting, BMI 17.6 -Full refractory manager assessment has been made, this is available in [employer], here is a copy/paste of their recommendations: I was able to have a nice conversation with both the patient and her daughter. She states that Marina used to weigh around 135 lbs, but hasn't been that weight since [id number]. She has had a lot of difficulty with food items getting caught in her throat. Marina specifically mentioned trying to eat meat yesterday and it getting caught. She was not aware of many things on her tray in puree form. We talked about how the pureed items would look different. Marina expressed that she does not enjoy regular Ensure. Her daughter expressed interest in Ensure Clear. Will add apple to patients menu BID per request. We discuussed other foods in puree form that could add additional calories/protein. She asked for mashed sweet potatoes, but we do not have those so she was okay with receiving hical mashed potatoes BID. Will monitor patient's weights, meal intake, labs, clinical status and supplement acceptance. Hyperlipidemia -Continue statin Hypothyroidism -Continue levothyroxine VS,Fishbone, I+O VS, Fishbone, I+O Laboratory Tests 03/23/21 05:53 03/23/21 05:58 Vital Signs Date Time Temp Pulse Resp B/P (MAP) Pulse Ox O2 Delivery O2 Flow Rate FiO2 03/23/21 14:00 97.7 88 18 118/59 (78) 100 Room Air I&O- Last 24 Hours up to 6 AM 03/23/21 06:00 Intake Total 1210 ml Output Total 725 ml Balance 485 ml JUVE FABIAN DO Mar 23, 2021 19:35
[2021-03-23] MEDS: SIMVASTATIN 10 MG TAB PO SCH (20:46)
[2021-03-23 22:00] VITALS: BP 122/66
[2021-03-24 06:00] VITALS: BP 123/68
[2021-03-24] MEDS: LEVOTHYROXINE 25MCG TABLET (0.025MG) PO SCH (06:01)
[2021-03-24 06:41] LABS: HEMATOCRIT 34.5 % (36.0-47.0); HEMOGLOBIN 10.9 g/dl (12.0-15.5); MEAN CORPUSCULAR HEMOGLOBIN 28.8 pg (27.0-33.0); MEAN CORPUSCULAR HGB CONC 31.6 g/dl (32.0-36.5); PLATELET COUNT, AUTOMATED 187 10^3/uL (150-450); RED BLOOD COUNT 3.79 10^6/uL (4.00-5.40); WHITE BLOOD COUNT 4.6 10^3/uL (4.0-10.0)
[2021-03-24 07:13] LABS: CALCIUM LEVEL 8.6 MG/DL (8.8-10.2); CREATININE FOR GFR 1.42 MG/DL (0.55-1.30); GLOMERULAR FILTRATION RATE 45.8 (>32); POTASSIUM SERUM 4.6 MEQ/L (3.5-5.1)
[2021-03-24] MEDS: ENTRESTO 24-26MG TABLET (SACUBITRIL/VALSARTAN) PO SCH ×2 (08:47→20:10)
[2021-03-24] MEDS: predniSONE 5 MG TAB PO SCH (08:47)
[2021-03-24] MEDS: APIXABAN 2.5 MG TAB (ELIQUIS) PO SCH ×2 (08:47→20:06)
[2021-03-24] MEDS: FAMOTIDINE 20 MG TAB PO SCH ×2 (08:47→20:08)
[2021-03-24] MEDS: guaiFENesin ER 600 MG TAB PO SCH ×2 (08:48→20:07)
[2021-03-24] MEDS: CALCITRIOL 0.25 MCG CAP (S0169) PO SCH (08:48)
[2021-03-24] MEDS: POTASSIUM CHLORIDE 10 MEQ SR TABLET PO SCH ×2 (08:48→20:08)
[2021-03-24] MEDS: OMEPRAZOLE 20 MG CAP PO SCH (08:48)
[2021-03-24] MEDS ORDERED: VARIBAR NECTAR 40% w/v 240ML SUSP BTL As Ordered ONE (11:23)
[2021-03-24] MEDS ORDERED: VARIBAR PUDDING 40% w/v 230ML TUBE As Ordered ONE (11:23)
[2021-03-24] MEDS ORDERED: E-Z-PAQUE 96% w/w SUSP 176GM BTL As Ordered ONE (11:24)
[2021-03-24] MEDS ORDERED: E-Z-HD 98% w/w 340GM SUSP BTL As Ordered ONE (11:24)
[2021-03-24] MEDS ORDERED: BARIUM SULFATE 700 MG TABLET (E-Z-DISK) As Ordered ONE ×2 (11:24→12:38)
[2021-03-24 14:00] VITALS: BP 127/68
--- NOTE | 2021-03-24 15:55 | IPNPDOC ---
Text Note Date of Service The patient was seen on 03/24/21. NOTE Subjective: Patient is an 80-year-old female who was initially admitted with s hortness of breath which is thought to be secondary to acute decompensation of diastolic congestive heart failure. Patient states that she is feeling well today. Patient has been having some issues swallowing saying that things are getting stuck in her throat. Patient was scheduled for a swallow evaluation today. Patient is otherwise feeling well today. Patient states that she used to be able to drive her bike everywhere prior to this exacerbation. Review of systems: General: Patient denies fevers HEENT: Patient denies headaches Cardiovascular: Patient denies chest pain Respiratory: Patient denies shortness of breath, cough GI: Patient denies abdominal pain, nausea, vomiting, diarrhea : Patient denies increased frequency or pain with urination Extremities: Patient denies swelling or pain in extremities Neurological: Patient denies numbness or tingling in legs Physical exam: Vitals: See below General: Alert and oriented female patient was sitting in the bedside chair eating breakfast when I walked in. Patient did not appear to be in any acute distress. HEENT: Normocephalic, atraumatic, moist mucous membranes. Neck: No lymphadenopathy or thyromegaly Cardiac: Regular rate and rhythm, no murmurs, normal S1, normal S2 Pulm: Clear to auscultation bilaterally. No wheezes, rhonchi, rales Abd: Nondistended, nontender to palpation, normal bowel sounds Ext: Trace pitting edema in the bilateral lower extremities Labs: See below Imaging: No new imaging has been performed Assessment/plan: 80-year-old female presented with shortness of breath and was found to have an acute decompensation of diastolic congestive heart failure 1. Acute exacerbation of congestive heart failure, ejection fraction on latest echocardiogram 35 to 40%. Patient now has an echocardiogram showing ejection fraction of 35 to 40% which makes this congestive heart failure with reduced ejection fraction. I did speak with the patient's route driver salesperson Dr. Proctor who states he needs to review her previous echocardiogram that was done in their office. Patient is currently on a calcium channel dragan however, if the patient truly does have heart failure with reduced ejection fraction, this will need to be changed to a beta-dragan once the patient is out of an acute exacerbation. Patient's diuretics were also decreased yesterday and patient had Entresto started by cardiology. I will continue to follow the patient with Dr. Proctor however, the patient is improving. 2. Acute kidney injury on CKD stage III likely secondary to cardiorenal syndrome. This is improved with diuresis and will continue to monitor. 3. GERD. Continue current treatment. 4. Difficulty swallowing. Speech therapy advised a level 2 diet and a gastroenterology consult once the patient is discharged. 5. History of systemic lupus erythematosus. Can restart Plaquenil once GFR returns to normal. 6. Cachexia, muscle wasting and a BMI of 17.6. Ensure has been added to the patient's trays. 7. Hyperlipidemia. Continue statin 8. Hypothyroidism continue levothyroxine. DVT Prophylaxis: Full anticoagulation with Eliquis Disposition: Pending clinical improvement, possible discharge tomorrow. VS,Chastity, I+O VS, Chastity, I+O Laboratory Tests 03/24/21 06:07 Vital Signs Date Time Temp Pulse Resp B/P (MAP) Pulse Ox O2 Delivery O2 Flow Rate FiO2 03/24/21 14:00 97.5 68 18 127/68 (87) 100 Room Air I&O- Last 24 Hours up to 6 AM 03/24/21 06:00 Intake Total 590 ml Output Total 377 ml Balance 213 ml PATSY LOVELL DO Mar 24, 2021 15:55
--- NOTE | 2021-03-24 16:56 | REP ---
INDICATION: dysphagia. COMPARISON: NONE TECHNIQUE: The procedure was performed under the direct supervision of . The procedure was performed with Zenaida Reese from speech pathology present. 1.6 minutes of fluoroscopy time was utilized for this procedure. FINDINGS: Thin: Patient was instructed to take a swallow from a cup. There is no evidence of penetration or aspiration. The patient was then instructed to take multiple swallows from a cup of thin barium. With this there was laryngeal penetration. Pudding: There is no evidence of penetration or aspiration. Mixed fruit: There is no evidence of penetration or aspiration. Soft consistency barium: There is no evidence of penetration or aspiration. Solid: There is no evidence of para-aspiration. The patient was then instructed to swallow a barium pill with applesauce. The patient was able to swallow a pill without difficulty. A detailed report of this examination will be provided by speech pathology. IMPRESSION: None RECOMMENDATION: A detailed report of this examination will be provided by speech pathology. IMPRESSION: With multiple swallows of thin barium from a cup there is laryngeal penetration. A detailed report of this examination will be provided by speech pathology. <Electronically signed by Lj Shepherd > 03/24/21 1512 <Electronically signed by Alfredo Ayala > 03/24/21 [id number]
[2021-03-24] MEDS: SIMVASTATIN 10 MG TAB PO SCH (20:10)
[2021-03-24 22:00] VITALS: BP 143/91
[2021-03-25] MEDS: LEVOTHYROXINE 25MCG TABLET (0.025MG) PO SCH (05:35)
[2021-03-25 06:00] VITALS: BP 133/71
[2021-03-25 06:14] LABS: HEMOGLOBIN 10.9 g/dl (12.0-15.5); MEAN CORPUSCULAR HEMOGLOBIN 28.5 pg (27.0-33.0); MEAN CORPUSCULAR HGB CONC 31.1 g/dl (32.0-36.5); MEAN CORPUSCULAR VOLUME 91.4 fl (80.0-96.0); PLATELET COUNT, AUTOMATED 197 10^3/uL (150-450); RED BLOOD COUNT 3.83 10^6/uL (4.00-5.40); WHITE BLOOD COUNT 4.2 10^3/uL (4.0-10.0)
[2021-03-25 06:25] LABS: CALCIUM LEVEL 8.6 MG/DL (8.8-10.2); CREATININE FOR GFR 1.25 MG/DL (0.55-1.30); GLOMERULAR FILTRATION RATE 53.1 (>32); POTASSIUM SERUM 4.5 MEQ/L (3.5-5.1)
[2021-03-25] MEDS ORDERED: METOPROLOL TART 50 MG TAB PO SCH (09:00)
[2021-03-25] MEDS: POTASSIUM CHLORIDE 10 MEQ SR TABLET PO SCH (09:19)
[2021-03-25] MEDS: ENTRESTO 24-26MG TABLET (SACUBITRIL/VALSARTAN) PO SCH (09:20)
[2021-03-25] MEDS: CALCITRIOL 0.25 MCG CAP (S0169) PO SCH (09:20)
[2021-03-25] MEDS: OMEPRAZOLE 20 MG CAP PO SCH (09:20)
[2021-03-25] MEDS: DIGOXIN 0.125 MG TAB PO SCH (09:20)
[2021-03-25] MEDS: APIXABAN 2.5 MG TAB (ELIQUIS) PO SCH (09:21)
[2021-03-25] MEDS: FAMOTIDINE 20 MG TAB PO SCH (09:21)
[2021-03-25] MEDS: predniSONE 5 MG TAB PO SCH (09:21)
[2021-03-25] MEDS: guaiFENesin ER 600 MG TAB PO SCH (09:21)
[2021-03-25 10:56] VITALS: BP 161/93
[2021-03-25] MEDS ORDERED: LOPR1TAB6 PO (13:08)
[2021-03-25] MEDS ORDERED: ENTR1TAB PO (13:08)
[2021-03-25 14:00] VITALS: BP 130/84
--- NOTE | 2021-03-25 15:13 | DS.PDOC ---
Discharge Summary General Date of Admission Mar 21, 2021 at 13:49 Date of Discharge 03/25/2021 Attending Physician: PATSY LOVELL DO Specialist/Consultants Involve: LEYDA DAVIS MD Discharge Summary PROCEDURES PERFORMED DURING STAY: None. ADMITTING DIAGNOSES: 1. Acute CHF exacerbation with preserved ejection fraction 2. Atrial flutter 3. Elevated troponin level 4. Hypertension 5. History of SLE 6. Hyperlipidemia 7. Cachexia 8. Hypothyroid 9. Acute kidney injury DISCHARGE DIAGNOSES: 1. Acute CHF exacerbation with reduced ejection fraction. 2. Atrial flutter 3. elevated troponin level, improved 4. Hypertension 5. History of SLE 6. Hyperlipidemia 7. Cachexia 8. Hypothyroidism 9. Acute kidney injury, resolved COMPLICATIONS/CHIEF COMPLAINT: Chf Exacerbation. HISTORY OF PRESENT ILLNESS: Patient is an 80-year-old female past medical history for duodenitis, emphysema, atrial flutter, mixed connective tissue disorder, former smoker quit 30 years ago who presented to the hospital with weakness, shortness of breath and abdominal pain. Patient stated around 2 to 3 days ago she developed abdominal pain intermittent in the lower quadrants. Patient also had increased shortness of breath and weakness. Patient was found not to have any leukocytosis. Patient's had a CT of the chest which showed CHF with bilateral bibasilar atelectasis and bilateral pleural effusions. Patient's abdominal pain had resolved by the time the patient was seen in the emergency department. HOSPITAL COURSE: Patient was placed on diuretics for her CHF and diuresed well. Patient shortness of breath did improve. Patient had bradycardia on telemetry and had her Cardizem cut in half. Patient was seen by cardiology who recommended the patient be started on Entresto as her new is a echocardiogram showed that the patient's ejection fraction was now 35 to 40%. Because of this, patient's Cardizem was also stopped and patient was started on metoprolol. Angus rnodon also had elevated troponins which were trended and slowly went down. Patient did not have any episodes of chest pain. Patient continued to improve. Patient was deemed ready for discharge on 03/25/2021 and was discharged home. Patient's losartan was discontinued as the patient is now on Entresto (sacubitril/valsartan) in the patient's Cardizem was discontinued and patient was started on metoprolol 50 mg twice daily. DISCHARGE MEDICATIONS: Please see below. ALLERGIES: Please see below. PHYSICAL EXAMINATION ON DISCHARGE: VITAL SIGNS: Please see below. General: Alert and oriented female patient who was sitting up in the bedside chair when I walked in the room. Patient was also able to walk a few feet by herself. Patient not appear to be in any acute distress. HEENT: Normocephalic, atraumatic, moist mucous membranes. Neck: No lymphadenopathy or thyromegaly Cardiac: Regular rate and rhythm, no murmurs, normal S1, normal S2 Pulm: Clear to auscultation bilaterally. No wheezes, rhonchi, rales Abd: Nondistended, nontender to palpation, normal bowel sounds Ext: No edema bilateral lower extremities LABORATORY DATA: Please see below. IMAGING: CT the abdomen pelvis with IV contrast performed on 03/21/2021 was reported to show marked cardiomegaly; bilateral pleural effusions and free fluid in the pelvis; increased attenuation subcutaneous and mesenteric fat; dilatation of the IVC: Findings consistent with CHF. Calcific vascular disease of the thoracoabdominal aorta and coronary arteries. Colonic diverticulosis without diverticulitis. Small hiatal hernia. Chest x-ray performed on was reported to show CHF with bibasilar atelectasis and bilateral pleural effusions. Cookie swallow performed on 03/24/2021 was reported to show multiple swallows of thin barium from a cup there is laryngeal penetration and there was recommendation for level 2 solids. 2D echocardiography was performed on 03/21/2021 is reported to show moderate global left ventricular systolic dysfunction with global hypokinesis. There is moderate concentric left ventricular hypertrophy. Aortic valve sclerosis with mild aortic regurgitation. Moderate mitral regurgitation with mildly enlarged left atrium. Moderate tricuspid regurgitation with moderate pulmonary hypertension and dilated right atrium. There is some findings of elevated central venous pressure. The inferior vena cava is mildly enlarged. Pleural and pericardial effusions were noted. No evidence of cardiac tamponade. Left ventricular systolic ejection fraction estimated to be 35 to 40%. PROGNOSIS: Good ACTIVITY: As tolerated. DIET: 2 g sodium pureed DISCHARGE PLAN: Discharge home DISPOSITION: . DISCHARGE INSTRUCTIONS: 1. Follow-up with your primary care provider within 3 to 5 days of discharge. 2. Follow-up with cardiology within 1 to 2 weeks of discharge 3. Follow-up with primary care provider for referral to gastroenterology for further work-up of your throat issues 4. Stop taking losartan and diltiazem and begin taking sacubitril/valsartan and metoprolol 5. Return to the emergency department if your symptoms worsen ITEMS TO FOLLOWUP ON ON OUTPATIENT: 1. Follow-up on new medications. DISCHARGE CONDITION: Stable. TIME SPENT ON DISCHARGE: 35 minutes. Vital Signs/I&Os Vital Signs Date Time Temp Pulse Resp B/P (MAP) Pulse Ox O2 Delivery O2 Flow Rate FiO2 03/25/21 14:00 97.5 87 16 130/84 (99) 98 Room Air I&O- Last 24 Hours up to 6 AM 03/25/21 06:00 Intake Total 400 ml Output Total 600 ml Balance -200 ml Laboratory Data Labs 24H Laboratory Tests 2 03/25/21 05:43: Nucleated Red Blood Cells % (auto) 0.0, Anion Gap 4L, Glomerular Filtration Rate 53.1, Calcium Level 8.6L CBC/BMP Laboratory Tests 03/25/21 05:43 Discharge Medications Scheduled Apixaban (Eliquis) 2.5 Mg Tablet, 2.5 MG PO BID, (Reported) Calcitriol (Rocaltrol) 0.25 Mcg Capsule, 0.25 MCG PO DAILY, (Reported) Cholecalciferol (Vitamin D3) (Vitamin D3) 25 Mcg Capsule, 25 MCG PO DAILY, (Reported) Digoxin (Digoxin) 125 Mcg Tablet, 125 MCG PO Q2D, (Reported) Furosemide (Furosemide) 40 Mg Tablet, 40 MG PO DAILY, (Reported) Hydroxychloroquine Sulfate (Hydroxychloroquine Sulfate) 200 Mg Tab, 200 MG PO DAILY, (Reported) Levothyroxine Sodium (Levothyroxine Sodium) 25 Mcg Tab, 25 MCG PO DAILY, (Reported) Magnesium Chloride (Mag64) 64 Mg Tablet.dr, 64 MG PO Q2D, (Reported) Metoprolol Tartrate (Lopressor) 50 Mg Tablet, 50 MG PO BID Omeprazole (Omeprazole) 20 Mg Capsule.dr, 20 MG PO DAILY, (Reported) Potassium Chloride (Potassium Chloride) 20 Meq Tablet.er, 20 MEQ PO BID, (Reported) Prednisone (Prednisone) 5 Mg Tablet, 5 MG PO DAILY, (Reported) Sacubitril/Valsartan (Entresto 24 mg-26 mg Tablet) 1 Each Tablet, 1 TAB PO BID Simvastatin (Simvastatin) 10 Mg Tablet, 10 MG PO DAILY, (Reported) Scheduled PRN Albuterol Sulfate (Ventolin Hfa) 18 Gm Hfa.aer.ad, 2 PUFF INH QID PRN for SOB/ WHEEZING, (Reported) Allergies Coded Allergies: SEASONAL ALLERGIES (Verified Allergy, Unknown, 07/02/19) PATSY LOVELL DO Mar 25, 2021 15:13
== END 2021-03-25 16:35 | disposition home or self-care (01) | DRG 291 ==
LOC: M ED 07:29 → M ED INP 13:49 → ENRESERV 15:07 → M MSPAV 15:29
PROVIDERS: ADMIT Internal Medicine; ATTEND Family Medicine
DX: I13.0 Hypertensive heart and chronic kidney disease with heart failure and stage 1 through stage 4 chronic kidney disease, or unspecified chronic kidney disease (principal); I50.33 Acute on chronic diastolic (congestive) heart failure; I48.92 Unspecified atrial flutter; N17.9 Acute kidney failure, unspecified; R64 Cachexia; Z68.1 Body mass index [BMI] 19.9 or less, adult; M32.9 Systemic lupus erythematosus, unspecified; E78.5 Hyperlipidemia, unspecified; E03.9 Hypothyroidism, unspecified; J30.2 Other seasonal allergic rhinitis; N18.30 Chronic kidney disease, stage 3 unspecified; R00.1 Bradycardia, unspecified; R13.10 Dysphagia, unspecified; M35.00 Sjogren syndrome, unspecified; K21.9 Gastro-esophageal reflux disease without esophagitis; D63.8 Anemia in other chronic diseases classified elsewhere; M54.16 Radiculopathy, lumbar region; Z87.891 Personal history of nicotine dependence; Z98.41 Cataract extraction status, right eye; Z98.42 Cataract extraction status, left eye; Z20.822 Contact with and (suspected) exposure to COVID-19; Z79.01 Long term (current) use of anticoagulants; Z79.899 Other long term (current) drug therapy; Z79.52 Long term (current) use of systemic steroids

== ENCOUNTER 2021-03-27 13:12 | Emergency (ER) | payer MEDICARE, MEDICAID ==
[~2021-03-27 13:12] MED LIST changes: +D-101000 PO; +ENTR1TAB PO; +FURO40TA2; +FURO40TA2 PO; +LOPR1TAB6 PO; +LOSA100T50 PO; +MAGN64TASA PO; +POTA1TAB14 PO
[2021-03-27] MEDS ORDERED: EPINEPHrine 1MG/10ML SYRINGE 1.5IN ONE (13:13)
[2021-03-27] MEDS ORDERED: SODIUM BICARBONATE 8.4% INJ 50MEQ 50 ML VIAL ONE (13:13)
[2021-03-27] MEDS ORDERED: DOPamine HCL 400 MG in IV 1 EA IV SCH (13:45)
[2021-03-27] MEDS ORDERED: NOREPINEPHRINE BITARTRATE 8 MG in D5W 492 ML IV SCH ×2 (13:45→13:55)
--- NOTE | 2021-03-27 14:01 | REP ---
INDICATION: CHEST PAIN. COMPARISON: 03/21/2021. TECHNIQUE: Single portable AP view of the chest was performed. FINDINGS: There is an endotracheal tube. The tip is approximately 6 mm above the berta pointing toward the right mainstem bronchus. Diffuse right lung infiltrate has increased since the prior study. There is mild bilateral pleural fluid or thickening. There is some minimal scattered infiltrate in the left lung. The cardiac silhouette is mildly prominent. There is calcification of the thoracic aorta. IMPRESSION: Endotracheal tube tip is 6 mm above the berta pointing toward the right mainstem bronchus. Diffuse right lung infiltrate has increased since the prior study. There are very mild scattered infiltrates in the left lung. There is a small amount of bilateral pleural fluid/thickening. <Electronically signed by Alfredo Ayala > 03/27/21 [id number]
[2021-03-27] MEDS ORDERED: PIPERACILLIN/TAZOBACTAM SOD 4.5 GM in D5W MINI-BAG PLUS 50 ML IV ONE (14:05)
[2021-03-27 14:06] LABS: HEMATOCRIT 28.8 % (36.0-47.0); HEMOGLOBIN 8.1 g/dl (12.0-15.5); MEAN CORPUSCULAR HEMOGLOBIN 28.6 pg (27.0-33.0); MEAN CORPUSCULAR HGB CONC 28.1 g/dl (32.0-36.5); MEAN CORPUSCULAR VOLUME 101.8 fl (80.0-96.0); RED BLOOD COUNT 2.83 10^6/uL (4.00-5.40); WHITE BLOOD COUNT 4.2 10^3/uL (4.0-10.0)
[2021-03-27] MEDS ORDERED: VASOPRESSIN INJ 20 UNITS in NS 500 ML IV SCH (14:20)
[2021-03-27] MEDS ORDERED: VASOPRESSIN INJ 20 UNITS/ML VIAL As Ordered ONE (14:22)
[2021-03-27 14:47] LABS: PLATELET COUNT, AUTOMATED 85 10^3/uL (150-450)
[2021-03-27 14:53] LABS: BASOPHILS 1 % (0-1); LYMPHOCYTES 14 % (16-44); METAMYELOCYTES 1 % (0-0); MONOCYTES 1 % (0-5); NEUTROPHILS 82 % (28-66)
[2021-03-27 14:54] LABS: ANISOCYTOSIS 1+; OVALOCYTES 1+; POIKILOCYTOSIS 1+
[2021-03-27 14:55] LABS: PLATELET ESTIMATE DECREASED (NORMAL)
[2021-03-27] MEDS ORDERED: LevoFLOXacin IV 750 MG in IV 1 EA IV ONE (15:00)
--- NOTE | 2021-03-27 15:02 | REP ---
INDICATION: arrerest. COMPARISON: 09/06/2006. TECHNIQUE: CT brain performed in the axial plane. Coronal reconstruction images are performed. FINDINGS: There is moderate atrophy. There is no midline shift or mass effect. There are periventricular small vessel ischemic changes in the white matter which are likely chronic in nature. There is no acute intracranial hemorrhage or extra-axial fluid collection. No skull fracture is seen. There are vascular calcifications in the carotid siphons. IMPRESSION: Chronic changes. No acute intracranial hemorrhage, midline shift or mass effect. <Electronically signed by Alfredo Ayala > 03/27/21 [id number]
--- NOTE | 2021-03-27 15:03 | REP ---
INDICATION: arrerest COMPARISON: Multiple the latest 09/12/2019 TECHNIQUE: Standard helical technique without intravenous contrast. This limits the exam. FINDINGS: There is mediastinal and suspected hilar adenopathy right greater than left but difficult to evaluate without intravenous contrast. The appearance of this has developed since the last exam. There are small bilateral pleural effusions. There is a small pericardial effusion which has developed since the last exam. There is four-chamber cardiac enlargement. There is an endotracheal tube in place the tip of which is in satisfactory position at the level of the aortic arch. The proximal portion of the nasogastric tube is seen coursing the esophagus the distal portion of which is beyond the confines of the CT the life somewhere within the stomach. There is no significant change in appearance of the osseous structures. Evaluation of the lung chavis shows bilateral lower lobe consolidation with air bronchograms right much greater than left and a small to moderate-sized right pneumothorax. Scattered interstitial opacities and airspace opacities are also seen in the aerated portion of each lung. This represents a significant change compared to the prior exam. IMPRESSION: 1. Adenopathy suspected as described above. 2. Dense bilateral lung consolidation as described above. 3. Right-sided pneumothorax as described above. 4. Small bilateral pleural effusions and small pericardial effusion. 5. Nasogastric and endotracheal tubes as described above. 6. Other findings and exam limitations as described above. <Electronically signed by Aftab Frausto > 03/27/21 1452
--- NOTE | 2021-03-27 15:17 | REP ---
INDICATION: arrerest. COMPARISON: 03/21/2021. TECHNIQUE: Abdomen pelvis CT without IV or bowel contrast. FINDINGS: Within the visualized lower lung chavis there is a right pneumothorax. There are bilateral lower lobe infiltrates. There are small bilateral pleural effusions, however, these are decreased in size from the prior study. There is a nasogastric tube with the tip terminating in the gastric fundus. The unenhanced hepatic parenchyma is unremarkable. The pancreas is unremarkable. The spleen is unremarkable. Cardiac size is enlarged. This is unchanged. The adrenals and unenhanced kidneys unremarkable except There is circumferential atheromatous calcifications throughout the aorta. No aortic aneurysm. No periaortic adenopathy or mass. There is diffuse haziness throughout the mesentery which may represent venous congestion. There is a small volume of ascites in the pelvis. No bowel distention or obstruction. Pelvis: Uterus and adnexa are unremarkable. There is a Crespo catheter in the bladder. Small volume of ascites in the dependent pelvis. For renal cortical cysts, unchanged. IMPRESSION: Cardiomegaly. Bilateral lower lobe infiltrates. Small bilateral pleural effusions, decreased in size from the comparison study. Right pneumothorax. Nasogastric tube tip in the gastric fundus. Haziness throughout the mesentery, possibly from venous congestion. Small volume of ascites in the pelvis. Bladder catheter. <Electronically signed by Alfredo Espinal > 03/27/21 [id number]
[2021-03-27 15:20] VITALS: BP 0/0
[2021-03-27 15:21] LABS: BILIRUBIN,DIRECT 0.7 MG/DL (0.0-0.2); BILIRUBIN,TOTAL 1.2 MG/DL (0.2-1.0); CREATININE FOR GFR 2.26 MG/DL (0.55-1.30); FREE T4 0.88 NG/DL (0.76-1.46); GLOMERULAR FILTRATION RATE 26.8 (>32); POTASSIUM SERUM 6.2 MEQ/L (3.5-5.1); THYROID STIMULATING HORMONE 5.69 uIU/ML (0.358-3.740); TOTAL PROTEIN 4.9 GM/DL (6.4-8.2)
--- NOTE | 2021-03-28 07:47 | ECGEPIP ---
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
== END 2021-03-27 17:33 | disposition home or self-care (01) ==
LOC: M ED 13:12
DX: I46.9 Cardiac arrest, cause unspecified (principal); I11.0 Hypertensive heart disease with heart failure; I50.9 Heart failure, unspecified; I48.91 Unspecified atrial fibrillation; M32.9 Systemic lupus erythematosus, unspecified; E78.9 Disorder of lipoprotein metabolism, unspecified; J30.2 Other seasonal allergic rhinitis; Z79.899 Other long term (current) drug therapy; Z79.01 Long term (current) use of anticoagulants; Z87.891 Personal history of nicotine dependence
CPT/HCPCS: 31500; 36415; 36556; 51702; 70450; 71045; 71250; 74176; 80048; 80076; 82803; 83605; 83690; 83880; 84439; 84443; 85025; 85049; 85055; 87798; 92950; 93005; 93041; 96365; 96368; 96375; 99291; 99292; J1265